=== PATIENT | male | born 1970 | race Caucasian/White ===

== ENCOUNTER → 2019-06-02 17:44 | Outpatient (CLI) | payer BC, SELFPAY ==
--- NOTE | ~2019-06-02 | XR_ITS ---
XR sternum min 2V 06/02/2019 18:10 INDICATION: Sternal pain for 9 months. Mass. PROCEDURE: 2 views of the sternum COMPARISON: Chest x-ray dated 10/01/2018 FINDINGS: Fracture, dislocation or subluxation is not identified. The soft tissues appear within norm al limits. No foreign bodies are identified. IMPRESSION: 1: NO SIGNIFICANT BONE OR JOINT ABNORMALITY IDENTIFIED. Reviewed, dictated and finalized at location A. SPOTTER
== END ==
PROVIDERS: Visit Provider Emergency Medicine
DX: R22.2 Localized swelling, mass and lump, trunk (principal)
CPT/HCPCS: 71120

== ENCOUNTER → 2019-10-04 19:21 | Outpatient (CLI) | payer BC, SELFPAY ==
--- NOTE | ~2019-10-04 | XR_ITS ---
EXAMINATION: XR cervical spine 4-5V EXAM DATE: 10/04/2019 19:43 INDICATION: Right finger numbness, tingling. TECHNIQUE: Cervical spine frontal, lateral, lateral swimmers, and open-mouth odontoid projections. There is no prior study for comparison. FINDINGS: There is moderate disc disease at C5-6 with 2-3 mm retrolisthesis. The vertebral bodies ar e otherwise aligned. Mild disc disease at C4-5, C6-7 and C7-T1. There is mild to moderate cervical ar thropathy. The odontoid process is intact. The lateral masses of C1 line up with C2. Prevertebral so ft tissue and pre-dens space are within normal limits. Lung apices are clear. IMPRESSION: 1. C5-6 moderate disc disease. 2. Mild to moderate arthropathy. Reviewed, dictated and finalized at location A.
--- NOTE | ~2019-10-04 | XR_ITS ---
EXAMINATION: XR shoulder RT min 2V EXAM DATE: 10/04/2019 19:43 INDICATION: Right finger numbness, tingling. TECHNIQUE: The following right shoulder projections obtained: frontal projection with internal rotati on, frontal projection with external rotation, Grashey, and axillary (4+ views). There is no prior s tudy for comparison. FINDINGS: There is 4 mm ossification projecting superior to the humeral head and glenoid, could be c alcific tendinosis (would be unusual location for joint body). There is mild glenohumeral, mild to mo derate acromioclavicular joint primary osteoarthritis. There are no acute fractures or dislocations i dentified. There is no subcutaneous gas. There are no radiopaque foreign bodies. IMPRESSION: 1. 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 2. Small ossification, could be calcific tendinosis. Reviewed, dictated and finalized at location A.
== END ==
PROVIDERS: PCP Emergency Medicine; Visit Provider Emergency Medicine
DX: R20.0 Anesthesia of skin (principal); R20.2 Paresthesia of skin; M19.011 Primary osteoarthritis, right shoulder; M67.813 Other specified disorders of tendon, right shoulder; M50.822 Other cervical disc disorders at C5-C6 level; M12.88 Other specific arthropathies, not elsewhere classified, other specified site
CPT/HCPCS: 72050; 73030

== ENCOUNTER → 2021-03-13 11:44 | Outpatient (CLI) | payer BC, SELFPAY ==
--- NOTE | ~2021-03-13 | XR_ITS ---
XR foot LT min 3V DATE: 03/13/2021 11:57 INDICATION: Pain and redness around the medial first metatarsophalangeal joint TECHNIQUE: 4 views COMPARISON: None FINDINGS: There is mild osteoarthritis of the first metatarsophalangeal joint. No fracture or dislocation, periosteal reaction or bone destruction. IMPRESSION: Mild left first metatarsophalangeal joint osteoarthritis Reviewed, dictated and finalized at location A.
== END ==
PROVIDERS: PCP Emergency Medicine; Visit Provider Emergency Medicine
DX: M25.572 Pain in left ankle and joints of left foot (principal)
CPT/HCPCS: 73630

== ENCOUNTER → 2022-03-16 13:56 | Outpatient (CLI) | payer BC, SELFPAY ==
--- NOTE | ~2022-03-16 | XR_ITS ---
EXAMINATION: XR chest 2V Exam Date/Time: 03/16/2022 14:03 CDT HISTORY: BRONCHITIS, COUGH X 3 DAYS Comparison: 10/01/2018. RESULT: Lines, tubes, and devices: None. Lungs and pleura: Clear. Cardiomediastinal silhouette: Stable. Other: No acute osseous or upper abdominal finding. IMPRESSION: No acute cardiopulmonary process. Reviewed, dictated and finalized at location K.
== END ==
PROVIDERS: PCP Emergency Medicine; Visit Provider Emergency Medicine
DX: J40 Bronchitis, not specified as acute or chronic (principal)
CPT/HCPCS: 71046

== ENCOUNTER → 2022-03-17 00:50 | Outpatient (CLI) | payer BC, SELFPAY ==
[2022-03-17 12:49] LABS: SARS-CoV-2 RNA PCR Negative
== END ==
PROVIDERS: PCP Emergency Medicine; Visit Provider Emergency Medicine
DX: J40 Bronchitis, not specified as acute or chronic (principal); Z20.822 Contact with and (suspected) exposure to COVID-19
CPT/HCPCS: C9803; U0003; U0005

== ENCOUNTER 2022-03-20 18:29 | Inpatient (IN) | payer BC, SELFPAY ==
[2022-03-20] VITALS (9 sets, daily range): BP systolic 117–131; BP diastolic 65–73; PULSE 75–91; RESP 14–25; TEMP 36.7; O2SAT 96–99
--- NOTE | ~2022-03-20 | NM_ITS ---
EXAMINATION: NM stress w perf spect multi DATE: 03/26/2022 09:40 INDICATION: Dyspnea with exertion TECHNIQUE: Rest images were obtained following intravenous administration of 11.1 mCi Tc99m tetrofosm in (Myoview). The patient performed an exercise activity. At peak exercise, 35.9 mCi Tc99m tetrofosmi n (Myoview) was administered intravenously, and stress images were obtained. Data was reconstructed i nto short axis and horizontal and vertical long axis SPECT images. Gated SPECT images were also ob[place]. COMPARISON: None. FINDINGS: There is normal left ventricular perfusion without definite evidence of reversible or fixed perfusion abnormality to suggest ischemia or infarction. There is normal left ventricular chamber size, wall motion and ejection fraction. Left ventricular ejection fraction measures 59%. IMPRESSION: 1. Normal myocardial perfusion at rest and during stress. 2. Left ventricular ejection fraction measuring 59%. Reviewed, dictated and finalized at location A.
--- NOTE | ~2022-03-20 | XR_ITS ---
EXAMINATION: XR chest 2V DATE: 03/20/2022 19:01 INDICATION: Shortness of breath TECHNIQUE: Frontal and lateral views of the chest are obtained COMPARISON: 03/16/2022 FINDINGS: The lungs are free of acute opacities. No pleural effusion or pneumothorax. The cardiomedia stinal silhouette is normal. There is mild thoracic spondylosis. IMPRESSION: 1. No acute cardiopulmonary abnormality. Reviewed, dictated and finalized at location F.
--- NOTE | ~2022-03-20 | CT_ITS ---
EXAMINATION: CTA chest PE protocol DATE: 03/20/2022 22:00 INDICATION: Shortness of breath TECHNIQUE: Computed tomography angiography (CTA) of the chest was performed with 200 mL Omnipaque-350 intravenous contrast timed to evaluate the pulmonary arteries. Coronal maximum intensity projection 3D-reconstructions were created by the technologist. The dose-length product (DLP) was 616.50 mGy-cm. Automated exposure control and iterative reconstruction technique were employed. COMPARISON: None. FINDINGS: The pulmonary arteries are well-opacified. No pulmonary embolism is identified. There are t ree-in-bud airspace opacities and mild bronchial wall thickening in the left lower lobe. There is mil d dependent atelectasis in the lungs. No pleural effusion or pneumothorax. There is mild left hilar l ymphadenopathy. The heart size is normal. There is mild thoracic spondylosis. IMPRESSION: 1. No pulmonary embolism. 2. Bronchial wall thickening and tree-in-bud opacities of the left lower lobe, consistent with pneumo phuc. Reviewed, dictated and finalized at location F. IMPRESSION: 1. No pulmonary embolism. 2. Bronchial wall thickening and tree-in-bud opacities of the left lower lobe, consistent with pneumonia.
--- NOTE | 2022-03-20 18:41 | ECG_ITS ---
Measurements Intervals [place] Rate: 80 P: 46 DE: 154 QRS: -2 QRSD: 100 T: 37 QT: 358 QTc: 415 Interpretive Statements SINUS RHYTHM NORMAL ECG NO PREVIOUS ECG AVAILABLE FOR COMPARISON Electronically Signed On 03-21-2022 15:08:11 CDT by Jose Alberto Shaw M.D.
[2022-03-20 18:52] LABS: Basophils Percent Auto 0.4 % (0.2-1.2); Eosinophils Percent Auto 0.2 % (0-4.4); Hematocrit 45.2 % (42.0-52.0); Hemoglobin 15.8 g/dL (14.0-18.0); Immature Granulocyte Absolute 0.04 K/mm3 (0.00-0.031); Immature Granulocyte Percent A 0.4 % (0-0.5); Lymphocytes Absolute Auto 1.36 K/mm3 (0.9-3.2); Lymphocytes Percent Auto 14.4 % (18.3-44.2); Mean Corpuscular Hemoglobin 32.2 pg (26-34); Mean Corpuscular Volume 92.2 fl (80-100); Mean Platelet Volume 10.9 fl (7.4-10.4); Monocytes Absolute Auto 0.7 K/mm3 (0.1-0.6); Monocytes Percent Auto 7.2 % (2.6-8.5); Neutrophils Absolute Auto 7.3 K/mm3 (1.3-6.7); Neutrophils Percent Auto 77.4 % (45.5-73.1); Platelet Count Result 229 k/mm3 (150-375); Red Cell Distribution Width 12.3 % (11.5-14.5); White Blood Count 9.4 K/mm3 (4.5-10.0)
[2022-03-20 19:03] LABS: Alanine Aminotransferase 28 U/L (6-50); Albumin Level 4.2 g/dL (3.5-5.1); Alkaline Phosphatase 60 U/L (38-126); Anion Gap 8 mmol/L (8-16); Aspartate Amino Transferase 22 U/L (17-59); Bilirubin,Total 0.5 mg/dL (0.2-1.3); Blood Urea Nitrogen 18 mg/dL (9-20); Carbon Dioxide 26 mmol/L (22-30); Chloride 104 mmol/L (98-107); Estimated CRCL calculation 95 ml/min; Estimated Glomerular Filt Rate > 60; Glucose 118 mg/dL (65-110); Potassium 3.6 mmol/L (3.4-5.0); Sodium 138 mmol/L (137-145)
[2022-03-20 19:06] LABS: D Dimer 0.34 ug/mL (<0.48)
--- NOTE | 2022-03-20 20:29 | ED.SOB ---
HPI - SOB/Dyspnea General Chief Complaint: Shortness of Breath/Dyspnea <Analia Crandall PA-C - Last Filed: 03/20/22 20:30> Stated Complaint: shortness of breath <Analia Crandall PA-C - Last Filed: 03/20/22 20:30> Time Seen by Provider: 03/20/22 20:28 <FELIPE Randhawa Last Filed: 03/20/22 20:30> Source: RN notes reviewed <DO Chepe Hennessy Last Filed: 03/21/22 08:49> History of Present Illness HPI Narrative: Patient presents emergency department from home for shortness of breath. Patient states symptoms began approximately 1 week ago he states he began to have a cough that was nonproductive as well as a feeling short of breath. He states he gone to his physician 5 days ago on Wednesday and at that time he been prescribed an inhaler and steroids as well as a Z-Musa. He states he continued to have feelings of shortness of breath and wheezing and come back to the physician today and was referred to the ER for further evaluation he denies any fevers or chills chest pain abdominal pain nausea vomiting or any other symptoms states he did have a negative COVID test <DO Chepe Hennessy Last Filed: 03/21/22 08:49> Related Data Home Medications: Home Medications Medication Instructions Recorded Confirmed ascorbate calcium (vitamin C) 500 500 mg PO DAILY 11/17/21 03/21/22 mg tablet clopidogrel 75 mg tablet (Plavix) 75 mg PO DAILY 11/17/21 03/21/22 finasteride 1 mg tablet 1 mg PO DAILY 11/17/21 03/21/22 testosterone cypionate 200 mg/mL 200 mg IM WEEKLY 03/21/22 03/21/22 intramuscular oil <FELIPE Randhawa Last Filed: 03/20/22 20:30> Allergies/Adverse Reactions: Allergies Allergy/AdvReac Type Severity Reaction Status Date / Time Penicillins Allergy Mild Hives Verified 11/17/21 14:32 <FELIPE Randhawa Last Filed: 03/20/22 20:30> Review of Systems Review of Systems: Gen.: Denies fevers or chills ENT: Denies congestion Respiratory: See HPI CV: Denies chest pain or palpitations GI: Denies abdominal pain nausea, emesis or diarrhea Musculoskeletal: Denies back pain or muscle pain Neuro: Denies numbness, tingling, weakness or focal weakness Skin: Denies rash Except as documented, all other systems reviewed and negative <Garrison Zhang DO - Last Filed: 03/21/22 08:49> [facility] Past Medical History Medical History: Medical History (Updated 03/21/22 @ 07:29 by FAVIO Salcedo) Asthma Folliculitis History of CVA (cerebrovascular accident) Overweight (BMI 25.0-29.9) Reactive cervical nodes <Analia Crandall PA-C - Last Filed: 03/20/22 20:30> Surgical History Surgical History: Surgical History H/O medial meniscus repair of right knee H/O vasectomy Hx of tonsillectomy <Analia Crandall PA-C - Last Filed: 03/20/22 20:30> Family History Family History: Family History Father Malignant neoplasm of prostate Hypertension Mother Pancreatic cancer <Analia Crandall PA-C - Last Filed: 03/20/22 20:30> Social History Social History: Social History Smoking status: Never smoker Alcohol intake: current Alcohol use details: social drinker- usually Beer Substance use: never Additional living arrangements comments: lives with 11 year old son Additional occupation/education comments: [employer] Gender identity (if verbalized by the patient): Male Spiritual care concerns: No <Analia Crandall PA-C - Last Filed: 03/20/22 20:30> Exam Narrative: APPEARANCE: No acute distress, nontoxic, resting in bed EYES: EOMI HEENT: Normocephalic, atraumatic, OMM RESPIRATORY: No respiratory distress wheezing throughout the bilateral lung velasco with coarse breath sounds in the bilateral lung bases C
[2022-03-20] MEDS: ALBUTEROL SULFATE NEB 2.5 MG/3 ML INH 5 MG INHALATION ×2 (20:45→22:35)
[2022-03-20] MEDS: IPRATROPIUM BR 0.02% INH SOLN 0.5 MG/2.5 ML VIAL INHALATION ×2 (20:45→22:35)
[2022-03-20] MEDS: methylPREDNISolone SOD SUCC 125 MG VIAL IV PUSH (20:57)
[2022-03-20 21:07] LABS: Troponin I < 0.012 ng/mL (0.000-0.034)
[2022-03-20 21:22] LABS: SARS-CoV-2 RNA PCR Negative
[2022-03-21] VITALS (16 sets, daily range): BP systolic 115–157; BP diastolic 56–70; PULSE 72–91; RESP 14–20; TEMP 36.5–37.1; O2SAT 98–100; BMI 23.8
--- NOTE | 2022-03-21 00:08 | ADMGEN ---
This patient, Tab Arango, was admitted to Medical Room 253-01. Patient/family oriented to hospital policies and general routines including ID bracelet, bed and alarms, visiting hours, pain management, procedures, bathroom and other care routines, personal items, smoking policy, room service/diet, and visiting hours. Information on how to activate the Rapid Response Team has been discussed. Patient/Family are encouraged to report perceived risks to care and to ask questions if they do not understand what they are told or what they should do.
[2022-03-21] MEDS: IPRATROPIUM BR 0.02% INH SOLN 0.5 MG/2.5 ML VIAL INHALATION ×4 (01:51→21:32)
[2022-03-21] MEDS: ALBUTEROL SULFATE NEB 2.5 MG/3 ML INH 5 MG INHALATION ×4 (01:52→21:31)
[2022-03-21 05:29] LABS: Basophils Percent Auto 0.1 % (0.2-1.2); Hematocrit 41.9 % (42.0-52.0); Hemoglobin 14.6 g/dL (14.0-18.0); Immature Granulocyte Absolute 0.05 K/mm3 (0.00-0.031); Immature Granulocyte Percent A 0.6 % (0-0.5); Lymphocytes Absolute Auto 0.58 K/mm3 (0.9-3.2); Lymphocytes Percent Auto 6.8 % (18.3-44.2); Mean Corpuscular HGB Conc 34.8 g/dl (32-36); Mean Corpuscular Hemoglobin 32.6 pg (26-34); Mean Corpuscular Volume 93.5 fl (80-100); Monocytes Absolute Auto 0.2 K/mm3 (0.1-0.6); Neutrophils Absolute Auto 7.7 K/mm3 (1.3-6.7); Neutrophils Percent Auto 90.5 % (45.5-73.1); Platelet Count Result 204 k/mm3 (150-375); Red Blood Count 4.48 M/mm3 (4.6-6.20); Red Cell Distribution Width 12.2 % (11.5-14.5); White Blood Count 8.5 K/mm3 (4.5-10.0)
[2022-03-21] MEDS: methylPREDNISolone SOD SUCC 125 MG VIAL 60 MG IV PUSH (05:37)
[2022-03-21 05:43] LABS: Alanine Aminotransferase 25 U/L (6-50); Albumin Level 3.9 g/dL (3.5-5.1); Alkaline Phosphatase 53 U/L (38-126); Anion Gap 12 mmol/L (8-16); Aspartate Amino Transferase 20 U/L (17-59); Bilirubin,Total 0.3 mg/dL (0.2-1.3); Blood Urea Nitrogen 17 mg/dL (9-20); Calcium 8.9 mg/dL (8.4-10.2); Carbon Dioxide 23 mmol/L (22-30); Chloride 104 mmol/L (98-107); Estimated CRCL calculation 86 ml/min; Estimated Glomerular Filt Rate > 60; Glucose 170 mg/dL (65-110); Sodium 139 mmol/L (137-145)
[2022-03-21] MEDS: ASCORBIC ACID 500 MG TABLET PO (08:56)
[2022-03-21] MEDS: CLOPIDOGREL BISULFATE 75 MG TABLET PO (08:57)
--- NOTE | 2022-03-21 10:30 | PM.IMHP ---
H&P: HPI History of Present Illness Date/Time: 03/21/22 10:30 Chief Complaint: Shortness of breath Narrative: Matthew is a 51 year old male with a past medical history of Asthma, BPH, CVA who presented to the ED with complaints of continued shortness of breath. Patient stated that this all started last Wednesday. He went to his primary care providers office and was prescribed an inhaler, steroids, and zpak. He then followed up on and had no relief. At that time his primary care provider increased his steroids to 5 days 50 mg p.o.. On Wednesday his MD called him and told him that he probably should go get evaluated the ED as he was concerned about a blood clot. Patient stated that he has just not been feeling around well. He also stated that he has been lying around and he has not moved or did much since he is so weak. He did state that his doctor wanted him to have a CT scan however that has already been done. His doctor also referred him to long lines operator. He denies any chest pain, nausea, vomiting, diarrhea, constipation, lightheadedness, dizziness, visual changes, wheezes. Patient did state that he has had a cough however is on productive at this time. He also stated that he does have headache but that too has just started. CTA did show a lower lobe pneumonia. I changed the patient over to cefepime and vancomycin due to the fact that he already took outpatient antibiotics with no relief. Currently patient denies any pain. Patient also denies any sweats, fevers, chills. Patient is being admitted to the hospital service under observation Review of Systems Review of Systems: All systems reviewed & are unremarkable except as noted in HPI and below PMFSH Past Medical History Medical History Asthma Folliculitis History of CVA (cerebrovascular accident) Overweight (BMI 25.0-29.9) Reactive cervical nodes Surgical History Surgical History H/O medial meniscus repair of right knee H/O vasectomy Hx of tonsillectomy Family History Family History Father Malignant neoplasm of prostate Hypertension Mother Pancreatic cancer Social History Social History Social History: Pain patient states that he currently lives with his brother. He elects his dad Dewey to be his surrogate if he is unable to make his own decisions. He does have 1 son and him in his brother do have multiple pets including [address] 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 Smoking status: Never smoker Alcohol intake: current Drinks per week: 3 Alcohol use details: social drinker- usually Beer every other weekend Substance use: never Living arrangements: with family Additional living arrangements comments: Lives with Brother Occupation/Education: occupation Additional occupation/education comments: [employer] Gender identity (if verbalized by the patient): Male Sexual Orientation (if Verbalized by the Patient): Straight or Heterosexual Spiritual care concerns: No Agree to blood products: Yes Meds Home Medications and Allergies Home Medications Medication Instructions Recorded Confirmed Type ascorbate calcium (vitamin C) 500 500 mg PO DAILY 11/17/21 03/21/22 History mg tablet clopidogrel 75 mg tablet (Plavix) 75 mg PO DAILY 11/17/21 03/21/22 History finasteride 1 mg tablet 1 mg PO DAILY 11/17/21 03/21/22 History testosterone cypionate 200 mg/mL 200 mg IM WEEKLY 03/21/22 03/21/22 History intramuscular oil Allergies Allergy/AdvReac Type Severity Reaction Status Date / Time Penicillins Allergy Mild Hives Verified 11/17/21 14:32 Vital Signs Vital Signs - 24 hr 03/20/22 18:31 03/20/22 20:48 03/20/22 22:37 Temperature 98.1 F Pulse Rate 87 82 81
[2022-03-21] MEDS: ACETAMINOPHEN 500 MG TABLET 1000 MG PO (11:34)
[2022-03-21 12:47] LABS: Hemoglobin A1C 5.2 % (<5.7)
[2022-03-21] MEDS: methylPREDNISolone SOD SUCC 40 MG VIAL IV PUSH (17:42)
[2022-03-21] MEDS: MELATONIN 3 MG TABLET 6 MG PO (23:00)
[2022-03-22] VITALS (10 sets, daily range): BP systolic 124–130; BP diastolic 65–68; PULSE 75–83; RESP 18–22; TEMP 36.5–36.6; O2SAT 96–99
[2022-03-22] MEDS: ALBUTEROL SULFATE NEB 2.5 MG/3 ML INH 5 MG INHALATION ×4 (02:46→20:17)
[2022-03-22] MEDS: IPRATROPIUM BR 0.02% INH SOLN 0.5 MG/2.5 ML VIAL INHALATION ×4 (02:46→20:17)
[2022-03-22 06:03] LABS: Basophils Percent Auto 0.2 % (0.2-1.2); Eosinophils Percent Auto 0.1 % (0-4.4); Hematocrit 39.4 % (42.0-52.0); Hemoglobin 13.7 g/dL (14.0-18.0); Immature Granulocyte Absolute 0.13 K/mm3 (0.00-0.031); Lymphocytes Absolute Auto 1.56 K/mm3 (0.9-3.2); Lymphocytes Percent Auto 11.7 % (18.3-44.2); Mean Corpuscular HGB Conc 34.8 g/dl (32-36); Mean Corpuscular Volume 92.1 fl (80-100); Mean Platelet Volume 11.1 fl (7.4-10.4); Monocytes Percent Auto 7.8 % (2.6-8.5); Neutrophils Absolute Auto 10.5 K/mm3 (1.3-6.7); Neutrophils Percent Auto 79.2 % (45.5-73.1); Platelet Count Result 215 k/mm3 (150-375); Red Blood Count 4.28 M/mm3 (4.6-6.20); Red Cell Distribution Width 12.5 % (11.5-14.5); White Blood Count 13.3 K/mm3 (4.5-10.0)
[2022-03-22 06:17] LABS: Alanine Aminotransferase 21 U/L (6-50); Albumin Level 3.5 g/dL (3.5-5.1); Alkaline Phosphatase 50 U/L (38-126); Anion Gap 9 mmol/L (8-16); Aspartate Amino Transferase 15 U/L (17-59); Bilirubin,Total 0.2 mg/dL (0.2-1.3); Blood Urea Nitrogen 14 mg/dL (9-20); Calcium 8.5 mg/dL (8.4-10.2); Carbon Dioxide 26 mmol/L (22-30); Chloride 105 mmol/L (98-107); Estimated CRCL calculation 95 ml/min; Estimated Glomerular Filt Rate > 60; Glucose 137 mg/dL (65-110); Magnesium 1.9 mg/dL (1.6-2.3); Potassium 3.3 mmol/L (3.4-5.0); Sodium 140 mmol/L (137-145)
[2022-03-22] MEDS: CLOPIDOGREL BISULFATE 75 MG TABLET PO (08:33)
[2022-03-22] MEDS: ASCORBIC ACID 500 MG TABLET PO (08:33)
[2022-03-22] MEDS: methylPREDNISolone SOD SUCC 40 MG VIAL IV PUSH ×2 (08:33→17:02)
[2022-03-22] MEDS: POTASSIUM CHLORIDE 20 MEQ TABLET 40 MEQ PO (09:22)
--- NOTE | 2022-03-22 09:30 | PM.IMPN ---
Progress Note: A&P Assessment and Plan (1) Community acquired pneumonia: Code(s): J18.9 - Pneumonia, unspecified organism Status: Acute Assessment and Plan: Chest X-ray shows no acute cardiopulmonary abnormality CTA shows No PE, Bronchial wall thickening and tree in bud opacities of the left lower lobe, consistent with PNA Change levaquin from the ED to cefepime and vanco for now Get blood cultures, not drawn prior to antibiotics Steroids as the patient has known history of asthma, wean to 40 BID Sputum culture collected and pending WBC elevated probably related to steroids at 13.3 Continue to trend labs Continue neb treatments (2) Failure of outpatient treatment: Code(s): Z78.9 - Other specified health status Status: Acute Assessment and Plan: Finished course of azithromycin outpatient No notable improvement WBC up probably related to steroids trend labs Blood and sputum culture ordered (3) Asthma: Code(s): J45.909 - Unspecified asthma, uncomplicated Status: Acute Assessment and Plan: Neb treatments ordered Steroids on board Continue to trend respiratory status Could be exacerbated by the PNA Cefepime and vanco for now Sputum culture ordered Time Spent With Patient Time with patient: Greater than 35 minutes Subjective Date/time seen: 03/22/22929 Interval history: 03/22/22929 Patient was sitting in the chair. He stated that he does not feel any better than he did yesterday. He did state that his cough is still the same and the sputum production is still very scant. He also is feeling very weak. He is also wheezy and has rhonchi on the bases. He is still complaining of shortness of breath with activity. No chest pain, diarrhea, or constipation noted. 03/21/22? 10:30 Matthew is a 51 year old male with a past medical history of Asthma, BPH, CVA who presented to the ED with complaints of continued shortness of breath.? Patient stated that this all started last Wednesday.? He went to his primary care providers office and was prescribed an inhaler, steroids, and zpak.? He then followed up on and had no relief.? At that time his primary care provider increased his steroids to 5 days 50 mg p.o..? On Wednesday his MD called him and told him that he probably should go get evaluated the ED as he was concerned about a blood clot.? Patient stated that he has just not been feeling around well.? He also stated that he has been lying around and he has not moved or did much since he is so weak.? He did state that his doctor wanted him to have a CT scan however that has already been done.? His doctor also referred him to general cargo clerk.? He denies any chest pain, nausea, vomiting, diarrhea, constipation, lightheadedness, dizziness, visual changes, wheezes.? Patient did state that he has had a cough however is on productive at this time.? He also stated that he does have headache but that too has just started.? CTA did show a lower lobe pneumonia.? I changed the patient over to cefepime and vancomycin due to the fact that he already took outpatient antibiotics with no relief.? Currently patient denies any pain.? Patient also denies any sweats, fevers, chills. Patient is being admitted to the hospital service under observation Review of Systems Review of Systems: All systems reviewed & are unremarkable except as noted in HPI and below Exam Const: General: cooperative, no acute distress, well developed, alert, awake, ill appearing, uncomfortable, average body habitus and well nourished Nutritional Appearance: well nourished Orientation/consciousness: patient oriented x3 Limitations: no limitations HENMT: Head: normal to inspection Ears: hearing grossly normal bilaterally Face/Nose/Sinus: Normal external nose present Mouth: Yes Normal oral and palatal mucosa present, Yes lip normal and Yes tongue normal Teeth and gi
[2022-03-22] MEDS: MELATONIN 3 MG TABLET 6 MG PO (20:45)
[2022-03-22 21:42] LABS: Vancomycin Trough 5.8 ug/mL (10.0-20.0)
[2022-03-23] VITALS (11 sets, daily range): BP systolic 113–117; BP diastolic 58–68; PULSE 64–87; RESP 12–18; TEMP 36.3–37.1; O2SAT 96–98
[2022-03-23] MEDS: ALBUTEROL SULFATE NEB 2.5 MG/3 ML INH 5 MG INHALATION ×3 (02:52→20:09)
[2022-03-23] MEDS: IPRATROPIUM BR 0.02% INH SOLN 0.5 MG/2.5 ML VIAL INHALATION ×4 (02:52→20:09)
[2022-03-23 05:58] LABS: Basophils Percent Auto 0.2 % (0.2-1.2); Eosinophils Percent Auto 0.1 % (0-4.4); Hematocrit 43.3 % (42.0-52.0); Hemoglobin 14.5 g/dL (14.0-18.0); Immature Granulocyte Absolute 0.18 K/mm3 (0.00-0.031); Immature Granulocyte Percent A 1.2 % (0-0.5); Lymphocytes Absolute Auto 1.81 K/mm3 (0.9-3.2); Lymphocytes Percent Auto 12.1 % (18.3-44.2); Mean Corpuscular HGB Conc 33.5 g/dl (32-36); Mean Corpuscular Hemoglobin 32.3 pg (26-34); Mean Corpuscular Volume 96.4 fl (80-100); Mean Platelet Volume 10.9 fl (7.4-10.4); Monocytes Absolute Auto 1.1 K/mm3 (0.1-0.6); Monocytes Percent Auto 7.3 % (2.6-8.5); Neutrophils Absolute Auto 11.9 K/mm3 (1.3-6.7); Neutrophils Percent Auto 79.1 % (45.5-73.1); Platelet Count Result 222 k/mm3 (150-375); Red Blood Count 4.49 M/mm3 (4.6-6.20); Red Cell Distribution Width 12.8 % (11.5-14.5)
[2022-03-23 06:18] LABS: Alanine Aminotransferase 20 U/L (6-50); Albumin Level 3.6 g/dL (3.5-5.1); Alkaline Phosphatase 51 U/L (38-126); Anion Gap 12 mmol/L (8-16); Aspartate Amino Transferase 17 U/L (17-59); Bilirubin,Total 0.3 mg/dL (0.2-1.3); Blood Urea Nitrogen 14 mg/dL (9-20); Calcium 8.8 mg/dL (8.4-10.2); Carbon Dioxide 26 mmol/L (22-30); Chloride 103 mmol/L (98-107); Estimated CRCL calculation 95 ml/min; Estimated Glomerular Filt Rate > 60; Glucose 128 mg/dL (65-110); Potassium 3.5 mmol/L (3.4-5.0); Sodium 141 mmol/L (137-145)
[2022-03-23] MEDS: methylPREDNISolone SOD SUCC 40 MG VIAL IV PUSH ×2 (08:07→18:02)
[2022-03-23] MEDS: CLOPIDOGREL BISULFATE 75 MG TABLET PO (08:07)
[2022-03-23] MEDS: ASCORBIC ACID 500 MG TABLET PO (08:07)
[2022-03-23] MEDS: ALBUTEROL SULFATE NEB 2.5 MG/3 ML INH (09:19)
--- NOTE | 2022-03-23 11:15 | PM.IMPN ---
Progress Note: A&P Assessment and Plan (1) Community acquired pneumonia: Code(s): J18.9 - Pneumonia, unspecified organism Status: Acute Assessment and Plan: Chest X-ray shows no acute cardiopulmonary abnormality CTA shows No PE, Bronchial wall thickening and tree in bud opacities of the left lower lobe, consistent with PNA Change levaquin from the ED to cefepime and vanco for now Get blood cultures, not drawn prior to antibiotics Steroids as the patient has known history of asthma, wean to 40 BID Sputum culture normal respiratory roberto WBC elevated probably related to steroids at 15.0 Continue to trend labs Continue neb treatments Consulted pulmonology thank you for your help (2) Failure of outpatient treatment: Code(s): Z78.9 - Other specified health status Status: Acute Assessment and Plan: Finished course of azithromycin outpatient No notable improvement WBC up probably related to steroids trend labs Blood and sputum culture ordered (3) Asthma: Code(s): J45.909 - Unspecified asthma, uncomplicated Status: Acute Assessment and Plan: Neb treatments ordered Steroids on board Continue to trend respiratory status Could be exacerbated by the PNA Cefepime and vanco for now Sputum culture ordered Subjective Date/time seen: 03/23/22 111 Interval history: 03/23/22 111 Patient states that he is doing okay today. He did state that he was still short of breath when he walks Na was still having issues with cough. He currently denies any chest nausea, diarrhea constipation fatigue I did talk to pulmonology about see the patient as he just does not sound very good in the bilateral lower bases. He did state that he was little bit weak but he stated that it is okay. He did state when he gets up that he gets so short of breath he does have to sit down and rest. 03/22/22 0930 Patient was sitting in the chair. He stated that he does not feel any better than he did yesterday. He did state that his cough is still the same and the sputum production is still very scant. He also is feeling very weak. He is also wheezy and has rhonchi on the bases. He is still complaining of shortness of breath with activity. No chest pain, diarrhea, or constipation noted. 03/21/22? 10:30 Matthew is a 51 year old male with a past medical history of Asthma, BPH, CVA who presented to the ED with complaints of continued shortness of breath.? Patient stated that this all started last Wednesday.? He went to his primary care providers office and was prescribed an inhaler, steroids, and zpak.? He then followed up on and had no relief.? At that time his primary care provider increased his steroids to 5 days 50 mg p.o..? On Wednesday his MD called him and told him that he probably should go get evaluated the ED as he was concerned about a blood clot.? Patient stated that he has just not been feeling around well.? He also stated that he has been lying around and he has not moved or did much since he is so weak.? He did state that his doctor wanted him to have a CT scan however that has already been done.? His doctor also referred him to director of student affairs.? He denies any chest pain, nausea, vomiting, diarrhea, constipation, lightheadedness, dizziness, visual changes, wheezes.? Patient did state that he has had a cough however is on productive at this time.? He also stated that he does have headache but that too has just started.? CTA did show a lower lobe pneumonia.? I changed the patient over to cefepime and vancomycin due to the fact that he already took outpatient antibiotics with no relief.? Currently patient denies any pain.? Patient also denies any sweats, fevers, chills. Patient is being admitted to the hospital service under observation Review of Systems Review of Systems: All systems reviewed & are unremarkable except as noted in HPI and below
--- NOTE | 2022-03-23 20:22 | PM.CNPUL ---
Assessment and Plan Assessment and plan (1) Community acquired pneumonia: Code(s): J18.9 - Pneumonia, unspecified organism Status: Acute Assessment and Plan: He has failed outpatient treatment, has persistent shortness of breath with exertion, no PE on CTA Does not feel much better compared to admission Has a history of stroke with left upper quadrant bilateral visual field defect consistent with right temporal lobe infarct 2012 says that he had a hole in his heart, however this was determined to be stable and did not need to be closed. echo with bubble study see if he has symptoms due to any change in a PFO or other intracardiac shunt Cornet valve with efforts to obtain sputum may help to guide treatment change if needed Urine antigens for Legionella and pneumococcus Continue bronchodilators and same antibiotics After discharge with improvement, consider PFTs and further follow up based on symptoms. History of Present Illness History of Present Illness Consult date: 03/23/22 Requesting physician: Landon Valdivia APN-C Reason for consult: pneumonia Chief complaint: Pneumonia Narrative: NEW CONSULT: Tab Arango is a 51-year-old healthy man who had asthma in his teens. He developed pneumonia over a week ago, Initially had fever for a few days. He had some coughing with scant amounts of sputum. He took off work last WednesdayMarch 16, saw his primary that day, was started on prednisone, azithromycin and albuterol. On Wednesday he felt terrible. He had worsening shortness of breath with exertion. He did not have any GI symptoms, no nausea vomiting diarrhea or abdominal pain, did not have a sore throat or any sinus congestion or drainage. He did not feel any better a few days later, had a chest x-ray that was negative. He continued to feel short of breath, especially with exertion. His primary recommended admission on Wednesday to make sure that he did not have a PE given the shortness of breath. Because he failed outpatient treatment, he was treated with cefepime and vancomycin. He had a CTA on 03/20 which did not show a pulmonary embolus. He does have a pneumonia in the left base with bronchial wall thickening and tree-in-bud opacities of the left lower lobe, consistent with pneumonia. He still is short of breath. His WBC is higher today, 15 K, normal Na+, normal BUN, creat and BP. He is oxygenating on room air. His only isck contact was with his girlfriend's 5 year old twins, and one of them had a sinus infection, and he recovered quickly. He has not had travel. He thought he might have developed COVID again, but a recent COVID test was negative. He has had COVID in the last year, maybe had it twice, and had loss of smell and taste. Otherwise he was not severely ill with COVID. He has a history of a stroke in 2013 with a left upper quadrant hemianopia. He had a workup at [facility], was told that he had a small hole in his heart, however he did not undergo closure. He had visual therapy, still has the defect. 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 Review of Systems Review of Systems: All systems reviewed & are unremarkable except as noted in HPI and below PMFSH Past Medical History Medical History Asthma Folliculitis History of CVA (cerebrovascular accident) Overweight (BMI 25.0-29.9) Reactive cervical nodes Surgical History Surgical History H/O medial meniscus repair of right knee H/O vasectomy Hx of tonsillectomy Family History Family History Father Malignant neoplasm of prostate Hypertension Mother Pancreatic cancer Social History Social History Social History: Pain patient states that he currently lives with
[2022-03-23] MEDS: MELATONIN 3 MG TABLET 6 MG PO (21:32)
[2022-03-23] MEDS: DOXYCYCLINE 100 MG/NS 100 ML 100 MG/100 ML BAG IVPB (21:33)
[2022-03-24] VITALS (9 sets, daily range): BP systolic 115–122; BP diastolic 53–67; PULSE 66–97; RESP 16–20; TEMP 36.3–36.7; O2SAT 95–98
--- NOTE | 2022-03-24 | ECHO_ITS ---
Patient Info Name: Tab Arango Age: 51 years : 1970 Gender: Male Ht: 72 in Wt: 175 lbs BSA: 2.01 m2 HR: 73 bpm BP: 113 / 68 mmHg Heart Rhythm: Sinus Rhythm Exam Date: 03/24/2022 11:34 AM Exam Location: [facility] Patient Status: Inpatient Admit Date: 03/22/2022 Staff Ordering Physician: Chrystal Gilman MD Fish Farm Manager: Emigdio Martin RDCS, RT Attending Provider: Ying Anthony DO Referring Physician: Mukul TOWNSEND; Exam Type: CA echo doppler w bubble study Study Info Indications R06.02 - Shortness of breath Complete two-dimensional, color flow and Doppler transthoracic echocardiogram is performed with agitated saline. Strain analysis performed. Summary 1. Left ventricular chamber dimension is mildly enlarged. 2. Left ventricular systolic function is normal, estimated at 55-60%. 3. There is mildly increased left ventricular wall thickness. 4. Left ventricular septal wall motion is normal. 5. The left ventricular diastolic function is normal. 6. Global longitudinal strain is normal at -21 %. 7. Left atrial chamber dimension is mildly enlarged. 8. Right atrial chamber dimension is mildly enlarged. 9. Suspected patent foramen ovale visualized by agitated saline imaging. 10. There is mild mitral valve regurgitation. 11. There is mild tricuspid valve regurgitation. 12. There is mild pulmonic regurgitation. 13. Normal inferior vena cava with <50% collapse upon inspiration consistent with elevated right atrial pressure, 10 mmHg. Left Ventricle Left ventricular chamber dimension is mildly enlarged. Left ventricular systolic function is normal, estimated at 55-60%. There is mildly increased left ventricular wall thickness. Left ventricular septal wall motion is normal. The left ventricular diastolic function is normal. Global longitudinal strain is normal at -21 %. Right Ventricle Right ventricular chamber dimension is normal. Right ventricular systolic function is normal. Left Atria Left atrial chamber dimension is mildly enlarged. Right Atria Right atrial chamber dimension is mildly enlarged. Atrial Septum Suspected patent foramen ovale visualized by agitated saline imaging. Aortic Valve The aortic valve is trileaflet. There is mild aortic valve sclerosis. There is no aortic valve stenosis. There is trace aortic valve regurgitation. Pulmonic Valve The pulmonic valve is normal. There is no pulmonic valve stenosis. There is mild pulmonic regurgitation. Mitral Valve The mitral valve has normal leaflets. There is no mitral valve stenosis. There is mild mitral valve regurgitation. Tricuspid Valve The tricuspid valve leaflets are normal. There is no significant tricuspid valve stenosis. There is mild tricuspid valve regurgitation. Inferior Vena Cava Normal inferior vena cava with <50% collapse upon inspiration consistent with elevated right atrial pressure, 10 mmHg. Aorta The aortic root size at the sinus of Valsalva is borderline dilated. Left Ventricular Outflow Tract Name Value Normal LVOT 2D LVOT Diameter 2.0 cm LVOT Doppler LVOT Peak Gradient
[2022-03-24 05:36] LABS: Basophils Absolute Auto 0.1 K/mm3 (0.0-0.1); Basophils Percent Auto 0.3 % (0.2-1.2); Eosinophils Percent Auto 0.1 % (0-4.4); Hematocrit 45.2 % (42.0-52.0); Hemoglobin 15.5 g/dL (14.0-18.0); Immature Granulocyte Absolute 0.34 K/mm3 (0.00-0.031); Immature Granulocyte Percent A 1.9 % (0-0.5); Lymphocytes Absolute Auto 1.87 K/mm3 (0.9-3.2); Lymphocytes Percent Auto 10.4 % (18.3-44.2); Mean Corpuscular HGB Conc 34.3 g/dl (32-36); Mean Corpuscular Hemoglobin 32.4 pg (26-34); Mean Corpuscular Volume 94.4 fl (80-100); Mean Platelet Volume 10.8 fl (7.4-10.4); Monocytes Absolute Auto 1.2 K/mm3 (0.1-0.6); Monocytes Percent Auto 6.5 % (2.6-8.5); Neutrophils Absolute Auto 14.6 K/mm3 (1.3-6.7); Neutrophils Percent Auto 80.8 % (45.5-73.1); Nucleated Red Blood Cells Perc 0.1 % (0.0-0.2); Platelet Count Result 252 k/mm3 (150-375); Red Blood Count 4.79 M/mm3 (4.6-6.20); Red Cell Distribution Width 12.7 % (11.5-14.5)
[2022-03-24 05:46] LABS: Alanine Aminotransferase 22 U/L (6-50); Albumin Level 3.9 g/dL (3.5-5.1); Alkaline Phosphatase 56 U/L (38-126); Anion Gap 8 mmol/L (8-16); Aspartate Amino Transferase 15 U/L (17-59); Bilirubin,Total 0.5 mg/dL (0.2-1.3); Blood Urea Nitrogen 16 mg/dL (9-20); Calcium 8.9 mg/dL (8.4-10.2); Carbon Dioxide 25 mmol/L (22-30); Chloride 105 mmol/L (98-107); Estimated CRCL calculation 106 ml/min; Estimated Glomerular Filt Rate > 60; Glucose 131 mg/dL (65-110); Magnesium 2.2 mg/dL (1.6-2.3); Potassium 4.1 mmol/L (3.4-5.0); Sodium 138 mmol/L (137-145)
[2022-03-24] MEDS: IPRATROPIUM BR 0.02% INH SOLN 0.5 MG/2.5 ML VIAL INHALATION ×3 (07:32→20:20)
[2022-03-24] MEDS: ALBUTEROL SULFATE NEB 2.5 MG/3 ML INH 5 MG INHALATION ×3 (07:32→20:20)
[2022-03-24] MEDS: DOXYCYCLINE 100 MG/NS 100 ML 100 MG/100 ML BAG IVPB ×2 (08:04→20:15)
[2022-03-24] MEDS: methylPREDNISolone SOD SUCC 40 MG VIAL IV PUSH ×2 (08:05→16:49)
[2022-03-24] MEDS: CLOPIDOGREL BISULFATE 75 MG TABLET PO (08:05)
[2022-03-24] MEDS: ASCORBIC ACID 500 MG TABLET PO (08:05)
--- NOTE | 2022-03-24 10:15 | PM.IMPN ---
Progress Note: A&P Assessment and Plan (1) Community acquired pneumonia: Code(s): J18.9 - Pneumonia, unspecified organism Status: Acute Assessment and Plan: Chest X-ray shows no acute cardiopulmonary abnormality CTA shows No PE, Bronchial wall thickening and tree in bud opacities of the left lower lobe, consistent with PNA Change antibiotics to cefepime and doxycycline Get blood cultures, not drawn prior to antibiotics Steroids as the patient has known history of asthma, wean to 40 BID Sputum culture normal respiratory roberto WBC elevated probably related to steroids at 18.0 Continue to trend labs Continue neb treatments Consulted pulmonology thank you for your help Pneumococcal, legionella ordered IS, Pep therapy (2) Failure of outpatient treatment: Code(s): Z78.9 - Other specified health status Status: Acute Assessment and Plan: Finished course of azithromycin outpatient No notable improvement WBC up probably related to steroids trend labs Blood and sputum culture ordered (3) Asthma: Code(s): J45.909 - Unspecified asthma, uncomplicated Status: Acute Assessment and Plan: Neb treatments ordered Steroids on board Continue to trend respiratory status Could be exacerbated by the PNA Cefepime and vanco for now Sputum culture came back to no growth Add Pulmicort Time Spent With Patient Time with patient: Greater than 35 minutes Subjective Date/time seen: 03/24/22 10:15 Interval history: 03/24/22 1015 Patient was lying in bed. Patient stated he has been able to walk around however he still gets very short of breath when he walks. He does not sound any better with lungs his white count is worse at 18 which is prior related to they steroids. He does have a cough that is still dry. Weakness is getting better. He denies any chest pain, nausea, vomiting, diarrhea, constipation. 03/23/22 1115 Patient states that he is doing okay today. He did state that he was still short of breath when he walks Na was still having issues with cough. He currently denies any chest nausea, diarrhea constipation fatigue I did talk to pulmonology about see the patient as he just does not sound very good in the bilateral lower bases. He did state that he was little bit weak but he stated that it is okay. He did state when he gets up that he gets so short of breath he does have to sit down and rest. 03/22/22 0930 Patient was sitting in the chair. He stated that he does not feel any better than he did yesterday. He did state that his cough is still the same and the sputum production is still very scant. He also is feeling very weak. He is also wheezy and has rhonchi on the bases. He is still complaining of shortness of breath with activity. No chest pain, diarrhea, or constipation noted. 03/21/22? 10:30 Matthew is a 51 year old male with a past medical history of Asthma, BPH, CVA who presented to the ED with complaints of continued shortness of breath.? Patient stated that this all started last Wednesday.? He went to his primary care providers office and was prescribed an inhaler, steroids, and zpak.? He then followed up on and had no relief.? At that time his primary care provider increased his steroids to 5 days 50 mg p.o..? On Wednesday his MD called him and told him that he probably should go get evaluated the ED as he was concerned about a blood clot.? Patient stated that he has just not been feeling around well.? He also stated that he has been lying around and he has not moved or did much since he is so weak.? He did state that his doctor wanted him to have a CT scan however that has already been done.? His doctor also referred him to pharmaceutical detailer.? He denies any chest pain, nausea, vomiting, diarrhea, constipation, lightheadedness, dizziness, visual changes, wheezes.? Patient did state that he has had a cough however is
--- NOTE | 2022-03-24 19:05 | PM.PNPUL ---
Progress Note: A&P Assessment and Plan (1) Community acquired pneumonia: Code(s): J18.9 - Pneumonia, unspecified organism Status: Acute Assessment and Plan: He has failed outpatient treatment, has persistent shortness of breath with exertion, no PE on CTA 03/20/22 He is feeling a little better, however WBC increased to 18 K. plan: check echo with bubble results; he had a shunt in 2012 with his stroke, but this was not deemed a problem, not closed. Continue Cornet valve for clearing airway secretions, bronchodilators, antibiotics. repeat CXR tomorrow Urine antigens are pending, but he won't have to wait for results if he is stable to go home Continue bronchodilators and same antibiotics After discharge with improvement, consider PFTs and further follow up based on symptoms. Has a history of stroke with left upper quadrant bilateral visual field defect consistent with right temporal lobe infarct 2012 says that he had a hole in his heart, however this was determined to be stable and did not need to be closed. Subjective Date/time seen: 03/24/22 19:05 Interval history: Hospital follow up : Tab Arango is a 51-year-old admitted with community acquired pneumonia, has asthma, was short of breath out of proportion to his LLL changes on chest CT. He failed out patient treatment, was admitted 03/20 to make sure that he did not have a PE given the shortness of breath, started on cefepime and vancomycin, CTA on 03/20 which did not show a pulmonary embolus.? He does have a pneumonia in the left base with? bronchial wall thickening and tree-in-bud opacities of the left lower lobe, consistent with pneumonia. ??He still is short of breath. His WBC is higher today, 18 K, normal Na+, normal BUN, creat and BP. He is oxygenating on room air.? He is feeling better using the Cornet valve. I turned it up to the highest setting. He is able to use this without difficulty. He had his echo with bubble today, results pending. Urine antigens pending also. He thought he might have developed COVID again, but a recent COVID test was negative.? He has had COVID in the last year, maybe had it twice, and had loss of smell and taste.? Otherwise he was not severely ill with COVID. PMH: Asthma; stroke in 2013 with a left upper quadrant hemianopia. ? He had a workup at [facility], was told that he had a small hole in his heart, however he did not undergo closure. He had visual therapy, still has the defect. 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 Review of Systems Review of Systems: All systems reviewed & are unremarkable except as noted in HPI and below Exam Narrative: GEN: Alert, oriented, not in distress. He is on room air, saturation is 96%. HEENT: pupils are equal, EOMI, symmetrical face; oral membranes moist CHEST: Equal air entry, symmetric excursion, localized wheezing the left base posteriorly with more crackles same area CV: Regular S1S2 no m/g/r ABD : (+) bowel sounds Extremities : no clubbing, cyanosis, or edema. No rash. PSYCH: normal thought and speech, gait is not tested. Neuro: He has a left upper outer visual field cut in both eyes Objective Data Vital Signs Vital Signs: Vital Signs - 24 hr 03/23/22 20:09 03/23/22 21:32 03/23/22 20:16 Temperature Pulse Rate 85 84 Respiratory Rate 16 16 Blood Pressure Pulse Oximetry 98 Oxygen Delivery Room Air 03/23/22 22:40 03/23/22 21:20 03/24/22 07:32 Temperature 36.3 C L Pulse Rate 76 86 Respiratory Rate 18 16 Blood Pressure 113/68 Pulse Oximetry 97 Oxygen Delivery Room Air 03/24/22 06:00 03/24/22 07:45 03/24/22 08:30 Temperature 36.6 C Pulse Rate 66 84 Respiratory Rate 20 16 Blood Pressure 117/53 L Pulse Oximetry 98 Oxygen Delivery Room Air 03/24/22 14:44 03/24/22 14:53 03/24/22 14:00 Temperature 36.7 C Pulse Rate 97
[2022-03-24] MEDS: MELATONIN 3 MG TABLET 6 MG PO (20:17)
[2022-03-24] MEDS: BUDESONIDE RESPULE NEB 0.5 MG/2 ML AMP INHALATION (20:21)
[2022-03-25] VITALS (13 sets, daily range): BP systolic 114–144; BP diastolic 64–85; PULSE 65–86; RESP 16–20; TEMP 36.2–36.4; O2SAT 96–99
[2022-03-25] MEDS: IPRATROPIUM BR 0.02% INH SOLN 0.5 MG/2.5 ML VIAL INHALATION ×4 (02:32→20:03)
[2022-03-25] MEDS: ALBUTEROL SULFATE NEB 2.5 MG/3 ML INH 5 MG INHALATION ×5 (02:32→20:03)
--- NOTE | 2022-03-25 04:14 | PC.NURSE ---
PT STATES POST VOID RESIDUAL DONE ON DAY SHIFT AND IT WAS 0
[2022-03-25 05:44] LABS: Basophils Absolute Auto 0.1 K/mm3 (0.0-0.1); Basophils Percent Auto 0.3 % (0.2-1.2); Eosinophils Percent Auto 0.1 % (0-4.4); Hemoglobin 15.6 g/dL (14.0-18.0); Immature Granulocyte Percent A 2.1 % (0-0.5); Lymphocytes Absolute Auto 1.71 K/mm3 (0.9-3.2); Mean Corpuscular HGB Conc 34.7 g/dl (32-36); Mean Corpuscular Hemoglobin 32.4 pg (26-34); Mean Corpuscular Volume 93.4 fl (80-100); Mean Platelet Volume 10.9 fl (7.4-10.4); Monocytes Absolute Auto 1.2 K/mm3 (0.1-0.6); Monocytes Percent Auto 6.6 % (2.6-8.5); Neutrophils Absolute Auto 15.5 K/mm3 (1.3-6.7); Neutrophils Percent Auto 81.9 % (45.5-73.1); Nucleated Red Blood Cells Perc 0.1 % (0.0-0.2); Platelet Count Result 265 k/mm3 (150-375); Red Blood Count 4.82 M/mm3 (4.6-6.20); Red Cell Distribution Width 12.5 % (11.5-14.5); White Blood Count 18.9 K/mm3 (4.5-10.0)
[2022-03-25 06:07] LABS: Alanine Aminotransferase 22 U/L (6-50); Albumin Level 3.9 g/dL (3.5-5.1); Alkaline Phosphatase 62 U/L (38-126); Anion Gap 8 mmol/L (8-16); Aspartate Amino Transferase 15 U/L (17-59); Bilirubin,Total 0.5 mg/dL (0.2-1.3); Blood Urea Nitrogen 18 mg/dL (9-20); Calcium 8.9 mg/dL (8.4-10.2); Carbon Dioxide 26 mmol/L (22-30); Chloride 103 mmol/L (98-107); Estimated CRCL calculation 95 ml/min; Estimated Glomerular Filt Rate > 60; Glucose 122 mg/dL (65-110); Lipase 44 U/L (23-300); Sodium 137 mmol/L (137-145)
--- NOTE | 2022-03-25 09:00 | PM.IMPN ---
Progress Note: A&P Assessment and Plan (1) Community acquired pneumonia: Code(s): J18.9 - Pneumonia, unspecified organism Status: Acute Assessment and Plan: Chest X-ray shows no acute cardiopulmonary abnormality CTA shows No PE, Bronchial wall thickening and tree in bud opacities of the left lower lobe, consistent with PNA Change antibiotics to cefepime and doxycycline Get blood cultures, not drawn prior to antibiotics Steroids as the patient has known history of asthma, wean to 40 BID Sputum culture normal respiratory roberto, however repeated WBC elevated probably related to steroids at 18.9 Continue to trend labs Continue neb treatments Consulted pulmonology thank you for your help Pneumococcal, legionella ordered IS, Pep therapy (2) Failure of outpatient treatment: Code(s): Z78.9 - Other specified health status Status: Acute Assessment and Plan: Finished course of azithromycin outpatient No notable improvement WBC up probably related to steroids trend labs Blood and sputum culture ordered (3) Asthma: Code(s): J45.909 - Unspecified asthma, uncomplicated Status: Acute Assessment and Plan: Neb treatments ordered Steroids on board Continue to trend respiratory status Could be exacerbated by the PNA Cefepime and vanco for now Sputum culture came back to no growth, will repeat at this time Add Pulmicort (4) Dyspnea on exertion: Code(s): R06.09 - Other forms of dyspnea Status: Acute Assessment and Plan: Trend respiratory track Echo does not show any acute problems Will get stress test Continue to trend labs Time Spent With Patient Time with patient: Greater than 35 minutes Subjective Date/time seen: 03/25/22 0900 Interval history: 03/25/22 09 Patient seems to be doing okay. White count is continually going up it is 18.9 today. Echo does show a little bit of of patent foramen ovale however discussing with Cardiology was not the cause of his dyspnea on exertion. After review with Dr. Vyas it was determined that the patient probably would benefit from a stress test. Currently patient denies any chest pain however he is still getting very short of breath with activity has to sit down. He denies any nausea, vomiting, diarrhea, constipation, weakness or fatigue. Patient does still sound very rough with wheezes and crackles and rhonchi. 03/24/22 1015 Patient was lying in bed. Patient stated he has been able to walk around however he still gets very short of breath when he walks. He does not sound any better with lungs his white count is worse at 18 which is prior related to they steroids. He does have a cough that is still dry. Weakness is getting better. He denies any chest pain, nausea, vomiting, diarrhea, constipation. 03/23/22 1115 Patient states that he is doing okay today. He did state that he was still short of breath when he walks Na was still having issues with cough. He currently denies any chest nausea, diarrhea constipation fatigue I did talk to pulmonology about see the patient as he just does not sound very good in the bilateral lower bases. He did state that he was little bit weak but he stated that it is okay. He did state when he gets up that he gets so short of breath he does have to sit down and rest. 03/22/22 0930 Patient was sitting in the chair. He stated that he does not feel any better than he did yesterday. He did state that his cough is still the same and the sputum production is still very scant. He also is feeling very weak. He is also wheezy and has rhonchi on the bases. He is still complaining of shortness of breath with activity. No chest pain, diarrhea, or constipation noted. 03/21/22? 10:30 Matthew is a 51 year old male with a past medical history of Asthma, BPH, CVA who presented to the ED with complaints of continued
--- NOTE | 2022-03-25 09:00 | P.PNIM_ITS ---
Progress Note: A&P Assessment and Plan (1) Community acquired pneumonia: Code(s): J18.9 - Pneumonia, unspecified organism Status: Acute Assessment and Plan: * Chest X-ray shows no acute cardiopulmonary abnormality * CTA shows No PE, Bronchial wall thickening and tree in bud opacities of the left lower lobe, consistent with PNA * Change antibiotics to cefepime and doxycycline * Get blood cultures, not drawn prior to antibiotics * Steroids as the patient has known history of asthma, wean to 40 BID * Sputum culture normal respiratory roberto, however repeated * WBC elevated probably related to steroids at 18.9 * Continue to trend labs * Continue neb treatments * Consulted pulmonology thank you for your help * Pneumococcal, legionella ordered * IS, Pep therapy (2) Failure of outpatient treatment: Code(s): Z78.9 - Other specified health status Status: Acute Assessment and Plan: * Finished course of azithromycin outpatient * No notable improvement * WBC up probably related to steroids * trend labs * Blood and sputum culture ordered (3) Asthma: Code(s): J45.909 - Unspecified asthma, uncomplicated Status: Acute Assessment and Plan: * Neb treatments ordered * Steroids on board * Continue to trend respiratory status * Could be exacerbated by the PNA * Cefepime and vanco for now * Sputum culture came back to no growth, will repeat at this time * Add Pulmicort (4) Dyspnea on exertion: Code(s): R06.09 - Other forms of dyspnea Status: Acute Assessment and Plan: * Trend respiratory track * Echo does not show any acute problems * Will get stress test * Continue to trend labs Time Spent With Patient Time with patient: Greater than 35 minutes Subjective Date/time seen: 03/25/22 0900 Interval history: 03/25/22 09 Patient seems to be doing okay. White count is continually going up it is 18.9 today. Echo does show a little bit of of patent foramen ovale however discussing with Cardiology was not the cause of his dyspnea on exertion. After review with Dr. Vyas it was determined that the patient probably would benefit from a stress test. Currently patient denies any chest pain however he is still getting very short of breath with activity has to sit down. He denies any nausea, vomiting, diarrhea, constipation, weakness or fatigue. Patient does still sound very rough with wheezes and crackles and rhonchi. 03/24/22 1015 Patient was lying in bed. Patient stated he has been able to walk around however he still gets very short of breath when he walks. He does not sound any better with lungs his white count is worse at 18 which is prior related to they steroids. He does have a cough that is still dry. Weakness is getting better. He denies any chest pain, nausea, vomiting, diarrhea, constipation. 03/23/22 1115 Patient states that he is doing okay today. He did state that he was still short of breath when he walks Na was still having issues with cough. He curren tly denies any chest nausea, diarrhea constipation fatigue I did talk to pulmonology about see the patient as he just does not sound very good in the bilateral lower bases. He did state that he was little bit weak but he stated that it is okay. He did state when he gets up that he gets so short of breath he does have to sit down and rest. 03/22/22 0930 Patient was sitting in the chair. He stated that he does not feel any jose
[2022-03-25] MEDS: methylPREDNISolone SOD SUCC 40 MG VIAL IV PUSH ×2 (09:12→17:15)
[2022-03-25] MEDS: ASCORBIC ACID 500 MG TABLET PO (09:12)
[2022-03-25] MEDS: CLOPIDOGREL BISULFATE 75 MG TABLET PO (09:12)
[2022-03-25] MEDS: BUDESONIDE RESPULE NEB 0.5 MG/2 ML AMP INHALATION ×2 (09:35→20:03)
[2022-03-25] MEDS: FUROSEMIDE INJ 40 MG/4 ML VIAL IV PUSH (09:49)
[2022-03-25] MEDS: DOXYCYCLINE 100 MG/NS 100 ML 100 MG/100 ML BAG IVPB ×2 (09:50→19:46)
[2022-03-25 10:06] LABS: NT Pro B Type Natriuretic Pept 34 pg/mL (5-100)
--- NOTE | 2022-03-25 19:15 | PM.PNPUL ---
Progress Note: A&P Assessment and Plan (1) Community acquired pneumonia: Code(s): J18.9 - Pneumonia, unspecified organism Status: Acute Assessment and Plan: He has failed outpatient treatment, has persistent shortness of breath with exertion, no PE on CTA 03/20/22 He is feeling a little better, however WBC increased to 18.9 K. Echo with bubble results 03/24/22 Left ventricular chamber dimension is mildly enlarged. ? 2. Left ventricular systolic function is normal, estimated at 55-60%. ? 3. There is mildly increased left ventricular wall thickness. ? 4. Left ventricular septal wall motion is normal. ? 5. The left ventricular diastolic function is normal. ? 6. Global longitudinal strain is normal at -21 %. ? 7. Left atrial chamber dimension is mildly enlarged. ? 8. Right atrial chamber dimension is mildly enlarged. ? 9. Suspected patent foramen ovale visualized by agitated saline imaging. ? 10. There is mild mitral valve regurgitation. ? 11. There is mild tricuspid valve regurgitation. ? 12. There is mild pulmonic regurgitation. ? 13. Normal inferior vena cava with <50% collapse upon inspiration consistent with elevated right atrial pressure, 10 mmHg. He had an intracardiac shunt in 2012 with his stroke, but this was not deemed a problem, not closed. Continue Cornet valve for clearing airway secretions, bronchodilators, antibiotics. Urine antigens are pending. Continue bronchodilators and same antibiotics After discharge with improvement, PFTs and further follow up based on his recovery. Subjective Date/time seen: 03/25/22 19:15 Interval history: Hospital follow up : Tab Arango is a 51-year-old admitted with community acquired pneumonia, has asthma, was short of breath out of proportion to his LLL changes on chest CT. He failed out patient treatment, was admitted 03/20 to make sure that he did not have a PE given the shortness of breath, started on cefepime and vancomycin, CTA on 03/20 which did not show a pulmonary embolus.? He does have a pneumonia in the left base with? bronchial wall thickening and tree-in-bud opacities of the left lower lobe, consistent with pneumonia. ??He still is short of breath. His WBC is higher today, 18 K, normal Na+, normal BUN, creat and BP. He is oxygenating on room air.? He is feeling better using the Cornet valve. I turned it up to the highest setting. He is able to use this without difficulty. Urine antigens pending also. He thought he might have developed COVID again, but a recent COVID test was negative.? He has had COVID in the last year, maybe had it twice, and had loss of smell and taste.? Otherwise he was not severely ill with COVID. PMH: Asthma; stroke in 2012 with a left upper quadrant hemianopia consistent with a right temporal lobe infarct 2012. He had a workup at [facility], was told that he had a small hole in his heart, however he did not undergo closure. He had visual therapy, still has the visual defect. 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 Review of Systems Review of Systems: All systems reviewed & are unremarkable except as noted in HPI and below Exam Narrative: GEN: Alert, oriented, not in distress. He is on room air, saturation is 96%. HEENT: pupils are equal, EOMI, symmetrical face; oral membranes moist CHEST: Equal air entry, symmetric excursion, localized wheezing the left base posteriorly with more crackles same area with more wheezing in the left amterior chest CV: Regular S1S2 no m/g/r ABD : (+) bowel sounds Extremities : no clubbing, cyanosis, or edema. No rash. PSYCH: normal thought and speech, gait is not tested. Objective Data Vital Signs Vital Signs: Vital Signs - 24 hr 03/24/22 20:24 03/24/22 20:25 03/24/22 20:45 Temperature 36.3 C L Pulse Rate 77 80 Respiratory Rate 16 18 Blood Pressure 122/58 L Pulse Oximetry 97 95 O
[2022-03-25] MEDS: MELATONIN 3 MG TABLET 6 MG PO (19:47)
[2022-03-26] VITALS (7 sets, daily range): BP systolic 118–129; BP diastolic 64–70; PULSE 66–77; RESP 18; TEMP 36.4–36.9; O2SAT 96–98
--- NOTE | 2022-03-26 | EST_ITS ---
Patient Info Name: Tab Arango Age: 51 years : 1970 Gender: Male Ht: 72 in Wt: 175 lbs BSA: 2.01 m2 HR: 60 bpm BP: 120 / 82 mmHg Heart Rhythm: Sinus Rhythm Exam Date: 03/26/2022 8:47 AM Exam Location: [facility], [place] Stress Patient Status: Inpatient Admit Date: 03/22/2022 Staff Ordering Physician: Landon Valdivia Attending Provider: Ying Anthony DO Exercise Technologist: Mary Barrios CT Nurse: jennifer bermeo Exam Type: CA stress test treadmill w NM Study Info Indications R06.00 - Dyspnea, unspecified A nuclear stress test was performed. Summary 1. Please correlate with nuclear medicine images, reported separately. 2. No abnormal ST-T wave changes with exercise. Protocol: [facility] ECG Details Stage: REST Duration (min): 0 min : 46 sec Speed (mph): 0.0 Grade (%): 0 HR (bpm): 60 SBP (mmHg): 120 DBP (mmHg): 82 METS: --- Stage: REST Duration (min): 3 min : 45 sec Speed (mph): 0.0 Grade (%): 0 HR (bpm): 65 SBP (mmHg): 120 DBP (mmHg): 82 METS: --- Stage: STAGE 1 Duration (min): 1 min : 0 sec Speed (mph): 1.7 Grade (%): 10 HR (bpm): 87 SBP (mmHg): 120 DBP (mmHg): 82 METS: --- Stage: STAGE 1 Duration (min): 2 min : 0 sec Speed (mph): 1.7 Grade (%): 10 HR (bpm): 94 SBP (mmHg): 120 DBP (mmHg): 82 METS: --- Stage: STAGE 1 Duration (min): 3 min : 0 sec Speed (mph): 1.7 Grade (%): 10 HR (bpm): 94 SBP (mmHg): 120 DBP (mmHg): 82 METS: --- Stage: STAGE 2 Duration (min): 1 min : 0 sec Speed (mph): 2.5 Grade (%): 12 HR (bpm): 101 SBP (mmHg): 120 DBP (mmHg): 82 METS: --- Stage: STAGE 2 Duration (min): 2 min : 0 sec Speed (mph): 2.5 Grade (%): 12 HR (bpm): 105 SBP (mmHg): 147 DBP (mmHg): 74 METS: --- Stage: STAGE 2 Duration (min): 3 min : 0 sec Speed (mph): 2.5 Grade (%): 12 HR (bpm): 108 SBP (mmHg): 147 DBP (mmHg): 74 METS: --- Stage: STAGE 3 Duration (min): 1 min : 0 sec Speed (mph): 3.4 Grade (%): 14 HR (bpm): 118 SBP (mmHg): 159 DBP (mmHg): 74 METS: --- Stage: STAGE 3 Duration (min): 2 min : 0 sec Speed (mph): 3.4 Grade (%): 14 HR (bpm): 122 SBP (mmHg): 159 DBP (mmHg): 74 METS: --- Stage: STAGE 3 Duration (min): 3 min : 0 sec Speed (mph): 3.4 Grade (%): 14 HR (bpm): 129 SBP (mmHg): 158 DBP (mmHg): 73 METS: --- Stage: STAGE 4 Duration (min): 1 min : 0 sec Speed (mph): 4.2 Grade (%): 16 HR (bpm): 145 SBP (mmHg): 158 DBP (mmHg): 73 METS: --- Stage: STAGE 4 Duration (min): 2 min : 0 sec Speed (mph): 4.2 Grade (%): 16 HR (bpm): 156 SBP (mmHg): 200 DBP (mmHg): 76 METS: --- Stage: STAGE 4
[2022-03-26] MEDS: IPRATROPIUM BR 0.02% INH SOLN 0.5 MG/2.5 ML VIAL INHALATION ×2 (02:10→13:42)
[2022-03-26] MEDS: ALBUTEROL SULFATE NEB 2.5 MG/3 ML INH 5 MG INHALATION ×3 (02:10→13:42)
--- NOTE | 2022-03-26 07:15 | PM.DS ---
DS: Admitting Diagnosis Discharge Date 03/26/2215 Admitting Diagnosis PNA, dyspnea with exerction DS: Discharge Diagnosis Discharge Diagnosis (1) Community acquired pneumonia: Code(s): J18.9 - Pneumonia, unspecified organism Status: Acute Assessment and Plan: Chest X-ray shows no acute cardiopulmonary abnormality CTA shows No PE, Bronchial wall thickening and tree in bud opacities of the left lower lobe, consistent with PNA Change antibiotics to cefepime and doxycycline Get blood cultures, not drawn prior to antibiotics Steroids as the patient has known history of asthma, wean to 40 BID Sputum culture normal respiratory roberto, however repeated WBC elevated probably related to steroids at 18.9 Continue to trend labs Continue neb treatments Consulted pulmonology thank you for your help Pneumococcal, legionella ordered IS, Pep therapy (2) Failure of outpatient treatment: Code(s): Z78.9 - Other specified health status Status: Acute Assessment and Plan: Finished course of azithromycin outpatient No notable improvement WBC up probably related to steroids trend labs Blood and sputum culture ordered (3) Asthma: Code(s): J45.909 - Unspecified asthma, uncomplicated Status: Acute Assessment and Plan: Neb treatments ordered Steroids on board Continue to trend respiratory status Could be exacerbated by the PNA Cefepime and vanco for now Sputum culture came back to no growth, will repeat at this time Add Pulmicort (4) Dyspnea on exertion: Code(s): R06.09 - Other forms of dyspnea Status: Acute Assessment and Plan: Trend respiratory track Echo does not show any acute problems Will get stress test Continue to trend labs DS: Summary Hospital Course Hospital Course: patient is a 51-year-old male with a past medical history of stroke, folliculitis, asthma who presented to the ED after failing outpatient treatment for pneumonia. Patient was having a cough with weakness was placed on azithromycin and steroids however not got any better. Patient came to the hospital he was placed on IV cefepime and vancomycin. MRSA swab was obtained and was negative. Sputum culture was obtained and was negative. Blood cultures were no growth today. Patient was then switched to doxycycline and cefepime. White blood cell count has been trending up however he has been on a pretty high dose of steroids at this time. Pneumococcal and Legionella both are pending. Patient does have a history of asthma neb treatments were started on the patient. Pulmicort has also been started. He was having some dyspnea on exertion and does sound wheezy and rhonchi on exam. However his lung sounds have gotten better and patient does feel better at this time. Patient is ready to be discharged and is wanting to be discharged. Labs vital signs remained stable at this time. Will have patient follow-up with pulmonology outpatient as they have been consulted. Will also have the patient follow-up with his primary care provider. Stress test was also performed and showed no abnormalities. Echo was performed showed a normal EF with normal diastolic dysfunction. Status at Discharge Functional status at discharge: independent ambulation Overall status at discharge: patient is progressing back to baseline Time Spent with Patient Time attestation: Total time spent providing and/or coordinating discharge services: 37 minutes Time spent: Greater than 30 minutes Specific discharge activities: Diagnostic testing, chart review, developing a treatment plan, education, care coordination documentation, physical exam, result review Exam Const: General: cooperative, healthy appearing, no acute distress, well developed, alert, awake, uncomfortable, average body habitus and well nourished Nutritional Appearance: average body habitus and wel
--- NOTE | 2022-03-26 07:15 | P.DS_ITS ---
DS: Admitting Diagnosis Discharge Date 03/26/22714 Admitting Diagnosis PNA, dyspnea with exerction DS: Discharge Diagnosis Discharge Diagnosis (1) Community acquired pneumonia: Code(s): J18.9 - Pneumonia, unspecified organism Status: Acute Assessment and Plan: * Chest X-ray shows no acute cardiopulmonary abnormality * CTA shows No PE, Bronchial wall thickening and tree in bud opacities of the left lower lobe, consistent with PNA * Change antibiotics to cefepime and doxycycline * Get blood cultures, not drawn prior to antibiotics * Steroids as the patient has known history of asthma, wean to 40 BID * Sputum culture normal respiratory roberto, however repeated * WBC elevated probably related to steroids at 18.9 * Continue to trend labs * Continue neb treatments * Consulted pulmonology thank you for your help * Pneumococcal, legionella ordered * IS, Pep therapy (2) Failure of outpatient treatment: Code(s): Z78.9 - Other specified health status Status: Acute Assessment and Plan: * Finished course of azithromycin outpatient * No notable improvement * WBC up probably related to steroids * trend labs * Blood and sputum culture ordered (3) Asthma: Code(s): J45.909 - Unspecified asthma, uncomplicated Status: Acute Assessment and Plan: * Neb treatments ordered * Steroids on board * Continue to trend respiratory status * Could be exacerbated by the PNA * Cefepime and vanco for now * Sputum culture came back to no growth, will repeat at this time * Add Pulmicort (4) Dyspnea on exertion: Code(s): R06.09 - Other forms of dyspnea Status: Acute Assessment and Plan: * Trend respiratory track * Echo does not show any acute problems * Will get stress test * Continue to trend labs DS: Summary Hospital Course Hospital Course: patient is a 51-year-old male with a past medical history of stroke, folliculitis, asthma who presented to the ED after failing outpatient treatment for pneumonia. Patient was having a cough with weakness was placed on azithromycin and steroids however not got any better. Patient came to the hospital he was placed on IV cefepime and vancomycin. MRSA swab was obtained and was negative. Sputum culture was obtained and was negative. Blood cultures were no growth today. Patient was then switched to doxycycline and cefepime. White blood cell count has been trending up however he has been on a pretty high dose of steroids at this time. Pneumococcal and Legionella both are pending. Patient does have a history of asthma neb treatments were started on the patient. Pulmicort has also been started. He was having some dyspnea on exertion and does sound wheezy and rhonchi on exam. However his lung sounds have gotten better and patient does feel better at this time. Patient is ready to be discharged and is wanting to be discharged. Labs vital signs remained stable at this time. Will have patient follow-up with pulmonology outpatient as they have been consulted. Will also have the patient follow-up with his primary care provider. Stress test was also performed and showed no abnormalities. Echo was performed showed a normal EF with normal diastolic dysfunction. Status at Discharge Functional status at discharge: independent ambulation Overall status at discharge: patient is progressing back to baseline Time Spent with Patient Time attestation: Total time spent providing and/or coordinating discharge servic
[2022-03-26] MEDS: BUDESONIDE RESPULE NEB 0.5 MG/2 ML AMP INHALATION ×2 (08:03→13:42)
[2022-03-26] MEDS: ASCORBIC ACID 500 MG TABLET PO (09:38)
[2022-03-26] MEDS: methylPREDNISolone SOD SUCC 40 MG VIAL IV PUSH (09:38)
[2022-03-26] MEDS: CLOPIDOGREL BISULFATE 75 MG TABLET PO (09:38)
[2022-03-26] MEDS: DOXYCYCLINE 100 MG/NS 100 ML 100 MG/100 ML BAG IVPB (10:42)
--- NOTE | 2022-03-26 13:38 | PC.NURSE ---
On 03/26/22, the student, [Analia Davis], provided care and completed [facility] documentation on this patient. I have reviewed the student's documentation and agree with the findings.
[2022-03-26 14:04] LABS: Basophils Percent Auto 0.2 % (0.2-1.2); Eosinophils Percent Auto 0.1 % (0-4.4); Hematocrit 50.5 % (42.0-52.0); Hemoglobin 17.2 g/dL (14.0-18.0); Immature Granulocyte Absolute 0.42 K/mm3 (0.00-0.031); Immature Granulocyte Percent A 2.1 % (0-0.5); Lymphocytes Absolute Auto 1.13 K/mm3 (0.9-3.2); Lymphocytes Percent Auto 5.7 % (18.3-44.2); Mean Corpuscular HGB Conc 34.1 g/dl (32-36); Mean Corpuscular Hemoglobin 32.4 pg (26-34); Mean Corpuscular Volume 95.1 fl (80-100); Mean Platelet Volume 10.6 fl (7.4-10.4); Monocytes Absolute Auto 0.9 K/mm3 (0.1-0.6); Monocytes Percent Auto 4.7 % (2.6-8.5); Neutrophils Absolute Auto 17.1 K/mm3 (1.3-6.7); Neutrophils Percent Auto 87.2 % (45.5-73.1); Nucleated Red Blood Cells Perc 0.1 % (0.0-0.2); Platelet Count Result 274 k/mm3 (150-375); Red Blood Count 5.31 M/mm3 (4.6-6.20); Red Cell Distribution Width 12.9 % (11.5-14.5); White Blood Count 19.7 K/mm3 (4.5-10.0)
[2022-03-26 14:28] LABS: Alanine Aminotransferase 25 U/L (6-50); Albumin Level 4.1 g/dL (3.5-5.1); Alkaline Phosphatase 63 U/L (38-126); Anion Gap 11 mmol/L (8-16); Aspartate Amino Transferase 26 U/L (17-59); Bilirubin,Total 0.7 mg/dL (0.2-1.3); Blood Urea Nitrogen 24 mg/dL (9-20); Calcium 8.9 mg/dL (8.4-10.2); Carbon Dioxide 24 mmol/L (22-30); Chloride 100 mmol/L (98-107); Estimated CRCL calculation 95 ml/min; Estimated Glomerular Filt Rate > 60; Glucose 138 mg/dL (65-110); Potassium 4.3 mmol/L (3.4-5.0); Sodium 135 mmol/L (137-145)
[2022-03-26 21:59] LABS: Pneumococcal Antigen Urine Not Detected (Not Detected)
[2022-03-27 16:38] LABS: Legionella pneumophila Ag Ur Not Detected (Not Detected)
== END 2022-03-26 15:55 | disposition home or self-care (01) | DRG 195 ==
LOC: ANHED 22:20 → ANH2MED 23:30
PROVIDERS: Internal Medicine Critical Care Medicine; Admitting Provider Internal Medicine; Emergency Provider Emergency Medicine; PCP Emergency Medicine; Visit Provider Nurse Practitioner
DX: J45.909 Unspecified asthma, uncomplicated (principal); J18.9 Pneumonia, unspecified organism; R06.09 Other forms of dyspnea; L73.9 Follicular disorder, unspecified; N40.0 Benign prostatic hyperplasia without lower urinary tract symptoms; Z20.822 Contact with and (suspected) exposure to COVID-19; Z86.16 Personal history of COVID-19; Z78.9 Other specified health status; Z79.899 Other long term (current) drug therapy; Z86.73 Personal history of transient ischemic attack (TIA), and cerebral infarction without residual deficits; Z88.0 Allergy status to penicillin
CPT/HCPCS: 36415; 71046; 71275; 78452; 80053; 80202; 83036; 83690; 83735; 83880; 84484; 85025; 85380; 87040; 87070; 87081; 87205; 87449; 87899; 93005; 93017; 93306; 94640; 96365; 96366; 96367; 96375; 96376; 99285; A9270; A9502; C9803; G0378; J0692; J1940; J1956; J2920; J2930; J3370; Q9967; U0003; U0005

== ENCOUNTER 2022-05-12 08:06 | Outpatient (CLI) | payer BC, SELFPAY ==
--- NOTE | 2022-05-12 14:02 | WPDPFTINT ---
PFT Procedure Performed PFT Procedure Performed Spirometry with Pre/Post Bronchodilator Plethysmography (Lung Vol) Diffusing Cap (DLCO) Flow Vol Loop PFT Interpretation Lung volumes were measured with the body plethysmography method. Lung volumes are unremarkable. Spirometry showed normal expiratory flow rates and a normal FEV1 to FVC ratio of 81%. Following administration of a bronchodilator, there was no significant increase in the expiratory flow rates. Lung diffusion capacity is within the normal range at 82% predicted. The flow volume loop is unremarkable. Impression: Spirometry, lung volumes, and lung diffusion capacity all within the normal range
== END 2022-05-12 08:07 | disposition home or self-care (01) ==
LOC: ANHPFT 08:07
PROVIDERS: PCP Emergency Medicine; Visit Provider Internal Medicine Critical Care Medicine
DX: J45.909 Unspecified asthma, uncomplicated (principal)
CPT/HCPCS: 94060; 94726; 94729

== ENCOUNTER 2022-05-25 15:40 | Outpatient (CLI) | payer BC, SELFPAY ==
--- NOTE | ~2022-05-25 | CT_ITS ---
CT Scan of the Chest without Contrast: Clinical Indication: Pneumonia Technique: Contiguous sections were acquired throughout the chest without intravenous contrast. Dose reduction technique was used on this scan by utilizing automated exposure control and iterative recon struction technique. The dose-length product (DLP) was 341.20 mGy-cm. COMPARISON: 03/20/2022 Findings: There is no evidence of any significant mediastinal, hilar or axillary lymphadenopathy. The mediastin al soft tissues appear normal. There is no evidence of pleural or pericardial effusion. The lungs are clear. No pulmonary nodules or infiltrates are noted. Images through the upper abdomen reveal no abnormalities. Impression: No significant abnormalities seen. Clear lungs. Reviewed, dictated and finalized at location . [employer] Impression: No significant abnormalities seen. Clear lungs.
== END 2022-05-25 15:41 | disposition home or self-care (01) ==
PROVIDERS: PCP Emergency Medicine; Visit Provider Internal Medicine Critical Care Medicine
DX: J18.9 Pneumonia, unspecified organism (principal)
CPT/HCPCS: 71250

== ENCOUNTER 2022-08-01 14:16 | Emergency (ER) | payer BC, SELFPAY ==
--- NOTE | ~2022-08-01 | XR_ITS ---
EXAM: XR finger 1st RT min 2V DATE: 08/01/2022 15:09 HISTORY: diffuse rt thumb pain x 1 month ? etiology . COMPARISON: None available. FINDINGS: Normal mineralization. No fracture or dislocation. No lytic or blastic lesion. Mild scatte red degenerative change. No erosion or periosteal change. Soft tissues within normal limits. IMPRESSION: No acute osseous finding in the right first digit. Reviewed, dictated and finalized at location K. ON[employer] WORKER
[2022-08-01 14:43] VITALS: BP 130/72; PULSE 67; RESP 16; TEMP 36.7; O2SAT 99
--- NOTE | 2022-08-01 15:15 | ED.UPPEXIN ---
HPI - Extremity Injury (Upper) General Chief Complaint: Extremity Injury, Upper Stated Complaint: right thumb pain Time Seen by Provider: 08/01/22 15:15 Source: patient Mode of arrival: ambulatory Limitations: no limitations History of Present Illness HPI narrative: 51 y/o male presented for c/o right thumb pain and mild swelling for 3 weeks. Denies injury. Endorses pain started on first knuckle then to base, with limited ROM at the base. States he cannot make a fist. States he was treated by PCP for trigger finger with steroid which he finished 2 days ago. States it is no longer 'sticking' but Pain still 11/14. Denies redness, bruising or deformity. Related Data Home Medications Medication Instructions Recorded Confirmed clopidogrel 75 mg tablet (Plavix) 75 mg PO DAILY 11/17/21 03/21/22 Allergies Allergy/AdvReac Type Severity Reaction Status Date / Time Penicillins Allergy Mild Hives Verified 08/01/22 15:11 Review of Systems Review of Systems: CONSTITUTIONAL: Denies body aches, fever, chills CARDIOVASCULAR: Denies chest pain, palpitations, or edema. RESPIRATORY: Denies cough or dyspnea. SKIN: Denies rash, itching, or wounds. MUSCULOSKELETAL: per HPI NEUROLOGIC: Denies headache, numbness, tingling, or weakness. All systems reviewed & are unremarkable except as noted in HPI and below PMFSH Past Medical History Medical History Asthma Folliculitis History of CVA (cerebrovascular accident) Overweight (BMI 25.0-29.9) Reactive cervical nodes Surgical History Surgical History H/O medial meniscus repair of right knee H/O vasectomy Hx of tonsillectomy Family History Family History Father Malignant neoplasm of prostate Hypertension Mother Pancreatic cancer Social History Social History Social History: Pain patient states that he currently lives with his brother. He elects his dad Dewey to be his surrogate if he is unable to make his own decisions. He does have 1 son and him in his brother do have multiple pets including [address] Patient also works for [employer] in the [employer] department Smoking status: Never smoker Alcohol intake: current Drinks per week: 3 Alcohol use details: social drinker- usually Beer every other weekend Substance use: never Living arrangements: with family Additional living arrangements comments: Lives with Brother Occupation/Education: occupation Additional occupation/education comments: [employer] Gender identity (if verbalized by the patient): Male Sexual Orientation (if Verbalized by the Patient): Straight or Heterosexual Spiritual care concerns: No Agree to blood products: Yes Comments At time of signature, I have reviewed and agree with nursing past medical, surgical, social and family history unless otherwise noted. Please see nursing chart for further information. There is no relevant family history pertinent to the presenting complaint Exam Narrative: GENERAL: Well-appearing CHEST: Speaks in full sentences. No respiratory distress. HEART: Regular rate and rhythm. Normal and equal peripheral pulses. EXTREMITIES: Right thumb MCP tender with palpation, mild swelling. Decreased ROM at MCP, unable to make fist with thumb. Hand has normal strength and sensation, No tenderness to DIP or snuff box. No open wounds or obvious deformity; alignment normal, pulse palpable and equal bilaterally, skin warm, dry, pink. Capillary refill less than 3 seconds. SKIN: Warm, dry, no rash. NEURO: Alert and oriented x3. Course Course Emergency Course: Patient is aware of diagnosis, understands and agrees to treatment plan. Anticipatory guidance given. Patient agrees to follow-up as directed and is aware of reasons to
== END 2022-08-01 15:34 | disposition home or self-care (01) ==
PROVIDERS: Emergency Provider Nurse Practitioner Family; PCP Emergency Medicine
DX: M79.644 Pain in right finger(s) (principal); J45.909 Unspecified asthma, uncomplicated; Z86.73 Personal history of transient ischemic attack (TIA), and cerebral infarction without residual deficits; Z98.52 Vasectomy status
CPT/HCPCS: 73140; 99213; G0463

== ENCOUNTER 2024-03-06 12:51 | Outpatient (CLI) | payer BC, SELFPAY ==
--- NOTE | ~2024-03-06 | CT_ITS ---
CT abdomen pelvis wo con Ordering provider: Jasper Vergara MD History: 53 years Male with . UPPER ABD PAIN X 4 WEEKS . Comparison: None. Technique: CT abdomen and pelvis without IV and without oral contrast. Automated exposure control and iterative reconstruction technique were employed. The dose-length product was 551.96 mGy-cm. Findings: VISUALIZED LOWER CHEST: Normal. UPPER ABDOMINAL ORGANS: Liver: Normal. Gallbladder: Normal. Spleen: Normal. Stomach/duodenum: Normal. Pancreas: Normal. Adrenals: Normal. Kidneys: Small cysts in the left kidney upper and mid pole. PELVIC ORGANS: The bladder is underfilled with slightly thickened wall. Evaluation for cystitis advis ed. BOWEL AND MESENTERY: Colon: No evidence of diverticulitis.. Normal appendix. Small Bowel: Normal. No obstruction. Peritoneum/mesentery: No free air or free fluid. No mesenteric lymphadenopathy. RETROPERITONEUM: Normal aorta. No retroperitoneal lymphadenopathy. MUSCULOSKELETAL: Superficial soft tissues: The superficial soft tissues are normal. Bones: Age appropriate degenerative changes of the spine. IMPRESSION: 1. No evidence of appendicitis, diverticulitis or intestinal obstruction. Reviewed, dictated and finalized at location A.
[2024-03-06 13:12] LABS: Hematocrit 49.8 % (42.0-52.0); Hemoglobin 17.2 g/dL (14.0-18.0); Mean Corpuscular HGB Conc 34.5 g/dl (32-36); Mean Corpuscular Hemoglobin 32.4 pg (26-34); Mean Corpuscular Volume 93.8 fl (80-100); Mean Platelet Volume 11.1 fl (7.4-10.4); Platelet Count Result 209 k/mm3 (150-375); Red Blood Count 5.31 M/mm3 (4.6-6.20); Red Cell Distribution Width 12.8 % (11.5-14.5); White Blood Count 6.5 K/mm3 (4.5-10.0)
[2024-03-06 13:13] LABS: Add Urine Microscopic? NO; Appearance Urine Clear (Clear); Bilirubin Urine Negative (Negative); Blood Urine Negative (Negative); Color Urine Yellow (Yellow); Glucose Urine UA Negative (Negative); Ketones Urine 1+ mg/dL (Negative); Leukocyte Esterase Ur Negative LEU/UL (Negative); Nitrate Urine Negative (Negative); Protein Urine Negative (Negative); Urobilinogen Urine 0.2 mg/dL (<2.0); pH Urine 5.5 (5.0-9.0)
[2024-03-06 13:24] LABS: Alanine Aminotransferase 40 U/L (6-50); Albumin Level 4.5 g/dL (3.5-5.1); Alkaline Phosphatase 60 U/L (38-126); Amylase 69 U/L (30-110); Anion Gap 6 mmol/L (4-12); Aspartate Amino Transferase 38 U/L (17-59); Bilirubin,Total 1.4 mg/dL (0.2-1.3); Blood Urea Nitrogen 17 mg/dL (9-20); Calcium 8.7 mg/dL (8.4-10.2); Carbon Dioxide 29 mmol/L (22-30); Chloride 102 mmol/L (98-107); Cholesterol 172 mg/dL (0-200); Estimated Glomerular Filt Rate > 60; Glucose 94 mg/dL (65-110); HDL Direct 55 mg/dL; Lipase 64 U/L (23-300); Potassium 4.2 mmol/L (3.4-5.0); Sodium 137 mmol/L (137-145); Triglycerides 65 mg/dL (<150)
[2024-03-06 13:35] LABS: LDL Cholesterol Direct 87 mg/dL
[2024-03-06 13:54] LABS: Prostate Specific Antigen 0.8 ng/mL (< OR = 4.0); Thyroid Stimulating Hormone 0.436 uIU/mL (0.465-4.680); Vitamin D 25 Hydroxy 63.9 ng/mL
[2024-03-06 13:57] LABS: Creatinine Urine 161.4 mg/dL
[2024-03-06 14:04] LABS: MALB Creatinine Ratio < 3.7 mg/g (0-30); Microalbumin Urine Random < 6.0 mg/L (0-16.7)
== END 2024-03-06 12:52 | disposition home or self-care (01) ==
PROVIDERS: PCP Emergency Medicine; Visit Provider Emergency Medicine
DX: Z00.00 Encounter for general adult medical examination without abnormal findings (principal); J45.909 Unspecified asthma, uncomplicated; I10 Essential (primary) hypertension; R31.9 Hematuria, unspecified; F32.9 Major depressive disorder, single episode, unspecified
CPT/HCPCS: 36415; 74176; 80053; 80061; 81003; 82043; 82150; 82306; 83690; 84153; 84439; 84443; 85027

== ENCOUNTER 2024-03-13 15:51 | Emergency (ER) | payer BC, SELFPAY ==
--- NOTE | ~2024-03-13 | XR_ITS ---
XR knee LT min 4V Ordering provider: Richie Bates APRN History: . left knee pain . Comparison: None. FINDINGS: BONES: No acute fracture or dislocation. JOINT SPACES: Normal. SOFT TISSUES: Normal. IMPRESSION: No acute osseous abnormality left knee. Reviewed, dictated and finalized at location A.
[2024-03-13 15:59] VITALS: BP 116/67; PULSE 65; RESP 20; TEMP 37.1; O2SAT 99
--- NOTE | 2024-03-13 16:22 | ED.LOWEXIN ---
HPI - Extremity Injury (Lower) General Chief Complaint: Extremity Problem,Nontraumatic Stated Complaint: Left Knee Pain Time Seen by Provider: 03/13/24 16:05 Source: patient Mode of arrival: ambulatory Limitations: no limitations History of Present Illness HPI Narrative: Tab is a 53-year-old male patient presenting to the clinic today with complaints of left knee pain x1 month. He reports that pain is to the posterior knee. Pain is worse with bending his knee. History of meniscus tear in the left knee. Related Data Home Medications Medication Instructions Recorded Confirmed clopidogrel 75 mg tablet (Plavix) 75 mg PO DAILY 11/17/21 03/13/24 Allergies Allergy/AdvReac Type Severity Reaction Status Date / Time Penicillins Allergy Mild Hives Verified 03/13/24 16:17 Review of Systems Review of Systems: Pertinent positives per HPI. Patient denies any fever, chills, rash, headache, visual changes, dizziness, cough, runny nose, sore throat, shortness of breath, chest pain, palpitations, nausea, vomiting, diarrhea, constipation, abdominal pain, or any urinary issues. [facility] Past Medical History Medical History Asthma Folliculitis History of CVA (cerebrovascular accident) Overweight (BMI 25.0-29.9) Reactive cervical nodes Surgical History Surgical History H/O medial meniscus repair of right knee H/O vasectomy Hx of tonsillectomy Family History Family History Father Malignant neoplasm of prostate Hypertension Mother Pancreatic cancer Social History Social History Social History: Pain patient states that he currently lives with his brother. He elects his dad Dewey to be his surrogate if he is unable to make his own decisions. He does have 1 son and him in his brother do have multiple pets [address] 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 Smoking status: Never smoker Alcohol intake: current Drinks per week: 3 Alcohol use details: social drinker- usually Beer every other weekend Substance use: never Living arrangements: with family Additional living arrangements comments: Lives with Brother Occupation/Education: occupation Additional occupation/education comments: [employer] Gender identity (if verbalized by the patient): Male Sexual Orientation (if Verbalized by the Patient): Straight or Heterosexual Spiritual care concerns: No Agree to blood products: Yes Comments At the time of my signature, I reviewed and agree with the nursing past medical, surgical, social, and family history. There is no relevant family history pertinent to the patient complaint. Exam Narrative: General: Well-developed, well nourished, in no apparent distress Head: Normocephalic, atraumatic. Cardio: Regular rate and rhythm, s1 and s2 normal, no murmur appreciated. Resp: Clear to auscultation bilaterally, no rhonchi, rales, wheezing or rubs. Musculoskeletal: No deformity, tender to palpation over the posterior knee, pain with full flexion of the knee, grossly normal range of motion, muscle strength strong and equal, peripheral pulse strong, no edema, no cyanosis, normal gait and station Course Course Emergency Course: Portions of this record may have been created with voice recognition software. Level of Care: Express Care Visit Vital Signs Vital signs: Vital Signs Temperature 37.1 C 03/13/24 15:59 Pulse Rate 65 03/13/24 15:59 Respiratory Rate 20 03/13/24 15:59 Blood Pressure 116/67 03/13/24 15:59 Pulse Oximetry 99 03/13/24 15:59 Oxygen Delivery Room Air 03/13/24 15:59 Temperature 37.1 C 03/13/24 15:59 Pulse Rate 65 03/13/24 15:59 Respiratory Rate 20 03/13/24 15:59 Blood Pressure
== END 2024-03-13 17:19 | disposition home or self-care (01) ==
PROVIDERS: Emergency Provider Nurse Practitioner Family; PCP Emergency Medicine
DX: M25.562 Pain in left knee (principal); J45.909 Unspecified asthma, uncomplicated; Z86.73 Personal history of transient ischemic attack (TIA), and cerebral infarction without residual deficits
CPT/HCPCS: 73564; 99213; G0463

== ENCOUNTER 2024-04-27 10:23 | Emergency (ER) | payer BC, SELFPAY ==
[2024-04-27 10:25] VITALS: BP 142/107; PULSE 65; RESP 20; TEMP 36.6; O2SAT 100
--- NOTE | 2024-04-27 12:38 | ED.LOWEXIN ---
HPI - Extremity Injury (Lower) General Chief Complaint: Extremity Injury, Lower Stated Complaint: knee pain Time Seen by Provider: 04/27/24 12:08 History of Present Illness HPI Narrative: 53-year-old male presenting with left knee pain. States that he has been dealing with a left knee injury for the past 4-6 weeks. He has been trying to get in with orthopedic surgery but is unable to until May 12. States that this morning he twisted his knee and exacerbated the pain. Denies new injuries or other complaints. Related Data Home Medications Medication Instructions Recorded Confirmed clopidogrel 75 mg tablet (Plavix) 75 mg PO DAILY 11/17/21 04/28/24 Allergies Allergy/AdvReac Type Severity Reaction Status Date / Time Penicillins Allergy Mild Hives Verified 04/28/24 06:51 Review of Systems Review of Systems: All systems reviewed & are unremarkable except as noted in HPI and below PMFSH Past Medical History Medical History (Updated 04/30/24 @ 09:25 by Rylan Crystal MD) Asthma CVA (cerebral vascular accident) Folliculitis History of CVA (cerebrovascular accident) Overweight (BMI 25.0-29.9) Reactive cervical nodes Surgical History Surgical History H/O medial meniscus repair of right knee H/O vasectomy Hx of tonsillectomy Family History Family History Father Malignant neoplasm of prostate Hypertension Mother Pancreatic cancer Social History Social History Social History: Pain patient states that he currently lives with his brother. He elects his dad Dewey to be his surrogate if he is unable to make his own decisions. He does have 1 son and him in his brother do have multiple pets including [address] Patient also works for [employer] in the [employer] department Smoking status: Never smoker Alcohol intake: current Drinks per week: 3 Alcohol use details: social drinker- usually Beer every other weekend Substance use: never Living arrangements: with family Additional living arrangements comments: Lives with Brother Occupation/Education: occupation Additional occupation/education comments: [employer] Gender identity (if verbalized by the patient): Male Sexual Orientation (if Verbalized by the Patient): Straight or Heterosexual Spiritual care concerns: No Agree to blood products: Yes Exam Narrative: GENERAL: Well-appearing, in no acute distress, pleasant cooperative HEAD: Normocephalic, atraumatic. EYES: PERRLA and EOMI. ENT: Grossly unremarkable NECK: Supple. CHEST: No respiratory distress. HEART: Regular rate and rhythm EXTREMITIES: L knee diffusely tender, ROM intact though painful, no obvious swelling or erythema SKIN: Warm, dry, no rash. NEURO: Alert and oriented x3. PSYCH: Normal mood and affect. Course Vital Signs Vital signs: Vital Signs Temperature 97.9 F 04/27/24 10:25 Pulse Rate 65 04/27/24 10:25 Respiratory Rate 20 04/27/24 10:25 Blood Pressure 142/107 H 04/27/24 10:25 Pulse Oximetry 100 04/27/24 10:25 Temperature 97.2 F L 04/27/24 13:14 Pulse Rate 74 04/27/24 13:14 Respiratory Rate 19 04/27/24 13:14 Blood Pressure 130/78 04/27/24 13:14 Pulse Oximetry 100 04/27/24 13:14 MDM - Extremity Injury (Lower) MDM Narrative Medical decision making narrative: 53-year-old male presenting with acute on chronic left knee pain. Vitals stable. Exam remarkable for the above. Do not feel imaging is warranted at this time as he just had an x-ray last month and he denies any new injuries. States that he just twisted it wrong this morning which exacerbated his pain. He already has an appointment with orthopedic surgery in a few weeks. He has crutches, will provide a knee immobilizer. Recommend Tylenol and naproxen. Discussed appropriate supportive care and return precautions. He is agreeable with this plan. Discharged in stable condition. Differential Diagnosis Differential diagnosis: Likely ankle sprain and strain and acute internal derangement of knee Medical Records Attestation: I reviewed the patient's medical records. Critical Care Time Critical Care Time Critical Care Time: No Discharge Plan Discharge Clinical Impression: Acute internal derangement of knee, Knee pain, left Patient Disposition: Home, Self-Care Condition: Stable Instructions: Antibiotic Form, Knee Pain (ED), Knee Immobilizer (ED) Additional Instructions: Please use the Tylenol and naproxen as needed for pain. Please follow-up with orthopedic surgery as discussed. If your symptoms worsen or other concerning symptoms arise, please return to the ER. Prescriptions: New acetaminophen [Tylenol Extra Strength] 500 mg tablet 1,000 mg PO Q6H PRN (Reason: fever or pain) Qty: 30 0RF No Action clopidogrel [Plavix] 75 mg tablet 75 mg PO DAILY hydrocodone-acetaminophen 7.5-325 mg tablet 1 tablet PO Q4H PRN (Reason: pain) Qty: 30 0RF Follow-up/Referrals: Jasper Vergara MD [Primary Care Provider] - Rylan Crystal MD [Physician] - Stand Alone Forms: Work/School Release IP
[2024-04-27] MEDS: ACETAMINOPHEN 500 MG TABLET 1000 MG PO (13:04)
[2024-04-27] MEDS: NAPROXEN 500 MG TABLET PO (13:05)
[2024-04-27 13:14] VITALS: BP 130/78; PULSE 74; RESP 19; TEMP 36.2; O2SAT 100
== END 2024-04-27 13:18 | disposition home or self-care (01) ==
PROVIDERS: Emergency Provider Emergency Medicine; PCP Emergency Medicine
DX: M23.92 Unspecified internal derangement of left knee (principal); S89.92XA Unspecified injury of left lower leg, initial encounter; J45.909 Unspecified asthma, uncomplicated; E66.3 Overweight; Z86.73 Personal history of transient ischemic attack (TIA), and cerebral infarction without residual deficits; X50.9XXA Other and unspecified overexertion or strenuous movements or postures, initial encounter
CPT/HCPCS: 99283; A9270

== ENCOUNTER 2024-05-10 08:43 | Outpatient (CLI) | payer BC, SELFPAY ==
--- NOTE | ~2024-05-10 | MR_ITS ---
MRI of the left knee Clinical history: Pain Technique: Coronal proton density and proton density-weighted images, sagittal proton-density and T2 fat-sat images, and axial proton-density fat-saturated images were acquired. Findings: Anterior and posterior cruciate ligaments are intact. Medial collateral ligament and the la teral collateral ligament complex are intact. Popliteus tendon is intact. There is a large radial tear at the posterior root of the medial meniscus. No lateral meniscal tear s een. There is extensive intrasubstance degenerative signal in the posterior horn of the medial menisc us otherwise. There is extensive grade IV chondromalacia of the lateral facet extending to the patellar apex, with mild subchondral reactive marrow edema. There is patchy moderate to high-grade chondromalacia the fem oral trochlea. There is focal grade IV chondromalacia of the central aspect of the medial femoral con dyle. There is mild chondral thinning along the lateral femoral condyle. Small tricompartmental osteo phytes are present. Extensor mechanism is intact. Small joint effusion present. Minimal Martin cyst present. Impression: Large radial tear at the posterior root of the medial meniscus. 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 Small joint effusion and minimal Martin's cyst. Reviewed, dictated and finalized at location . CHAIRMAN Impression: Large radial tear at the posterior root of the medial meniscus. 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 Small joint effusion and minimal Martin's cyst.
== END 2024-05-10 08:44 | disposition home or self-care (01) ==
PROVIDERS: PCP Orthopaedic Surgery; Visit Provider Emergency Medicine
DX: S83.242A Other tear of medial meniscus, current injury, left knee, initial encounter (principal); M17.12 Unilateral primary osteoarthritis, left knee; M25.462 Effusion, left knee; M71.22 Synovial cyst of popliteal space [Baker], left knee; X58.XXXA Exposure to other specified factors, initial encounter
CPT/HCPCS: 73721

== ENCOUNTER 2024-08-04 00:45 | Day surgery (SDC) | payer BC, SELFPAY ==
[2024-07-28 10:45] VITALS: BMI 27.1
--- NOTE | 2024-07-28 11:02 | PC.NURSE ---
Spoke with patient regarding medication PLAVIX. PATIENT verbalizes understanding that the last dose is to be taken on 07/30/24 and the Endoscopist will instruct them when to restart after the procedure.
[2024-08-04 09:52] VITALS: BP 120/67; PULSE 71; RESP 16; TEMP 35.7; O2SAT 98; BMI 26.6
--- NOTE | 2024-08-04 09:52 | WPDANESEPPF ---
Anes - Initial Pre Proc Eval Procedure: Operation Date: 08/04/24 11:00 Proposed Procedures p Esophagogastroduodenoscopy&Screen Colon - Attila Montana MD Date/Time: 08/04/24 09:52 Surgeon: Attila Montana MD Pre Op Diagnosis: Screening,Epigastric pain, ferry terminal agent use NSAID Patient Data Age: 53 Gender: M Height: 1.83 m Weight: 91 kg Allergies Allergy/AdvReac Type Severity Reaction Status Date / Time Penicillins Allergy Mild Hives Verified 08/04/24 09:49 Home Medications ?Medication ?Instructions ?Recorded ?Confirmed ?Type minoxidil 2.5 mg tablet 2.5 mg PO DAILY 05/12/24 08/04/24 History clopidogrel 75 mg tablet (Plavix) 75 mg PO DAILY #30 tabs 05/29/24 08/04/24 Rx finasteride 1 mg tablet 1 mg PO DAILY 05/29/24 08/04/24 History tadalafil 10 mg tablet (Cialis) 10 mg PO DAILY PRN sexual activity 05/29/24 07/28/24 Rx #10 tabs testosterone cypionate 100 mg/mL 50 mg (0.5 mL) subcut WEEKLY #10 mL 06/28/24 08/04/24 Rx intramuscular oil (Depo-Testosterone) cyanocobalamin (vitamin B-12) 1,000 mcg IM WEEKLY 07/28/24 08/04/24 History 1,000 mcg/mL injection solution meloxicam 15 mg tablet 15 mg PO DAILY 07/28/24 08/04/24 History Patient hx anesthesia problems: none Family hx anesthesia problems: none Results Review: All pre-operative results and documents have been reviewed as part of the pre-operative evaluation. [facility] Past Medical History Medical History CVA (cerebral vascular accident) Asthma Overweight (BMI 25.0-29.9) History of CVA (cerebrovascular accident) Folliculitis Reactive cervical nodes Surgical History Surgical History H/O vasectomy Hx of tonsillectomy H/O medial meniscus repair of right knee Family History Family History Father Malignant neoplasm of prostate Hypertension Mother Pancreatic cancer Cerebrovascular accident Social History Social History Social History: Pain patient states that he currently lives with his brother. He elects his dad Dewey to be his surrogate if he is unable to make his own decisions. He does have 1 son and him in his brother do have multiple pets including [address] Patient also works for [employer] in the [employer] department Smoking status: Never smoker Alcohol intake: current Drinks per week: 3 Alcohol use details: social drinker- usually Beer every other weekend Substance use: never Substance use type: does not use Do You Feel Safe in your Home?: Yes Lack of Transportation: No Lack of Food: Never True Current Housing: I Have Housing Concerned About Future Housing: No Difficulty Paying Gas/Electric Bills: No Difficulty Paying for Meds: No Currently Unemployed: No Education: Trade/Vocational Certificate Difficulty w/ Childcare or Family Care: No Living arrangements: with family Additional living arrangements comments: Lives with Brother Occupation/Education: occupation Additional occupation/education comments: [employer] Gender identity (if verbalized by the patient): Male Sexual Orientation (if Verbalized by the Patient): Straight or Heterosexual Spiritual care concerns: No Agree to blood products: Yes Anes - Eval Final PreProcedure Day of Procedure 08/04/24 09:52 Patient weight: overweight Heart: regular rate and rhythm Lungs: clear to auscultation Airway: Mallampati scale class II Neurological: alert and oriented Last oral intake: >/= 8 hours ASA classification: III Emergent: no Anesthetic plan: proceed Anesthesia type and monitoring: general GIVS and standard monitoring Results Review: All pre-operative results and documents have been reviewed as part of the pre-operative evaluation. Informed Consent: The patient's anesthetic plan and its attendant risks and benefits were discussed with the patient/family/POA. Questions were solicited and answers provided to the satisfaction of the patient/family/POA.
[2024-08-04] MEDS: LACTATED RINGERS 1,000 ML 150 ML IV CONT (10:01)
--- NOTE | 2024-08-04 10:05 | PM.HPGS ---
History of Present Illness History of Present Illness Consent: Risks, benefits, and alternatives have been discussed and questions answered. Patient agrees to proceed with procedure. Chief complaint: Screening,Epigastric pain, terminal block assembler use NSAID Narrative: Tab Arango is a 53 year old male with episode of non-cardiac chest pain but resolved, here for EGD. Also he is getting first screening colonoscopy. Review of Systems Review of Systems: All systems reviewed & are unremarkable except as noted in HPI and below PMFSH Past Medical History Medical History CVA (cerebral vascular accident) Asthma Overweight (BMI 25.0-29.9) History of CVA (cerebrovascular accident) Folliculitis Reactive cervical nodes Surgical History Surgical History H/O vasectomy Hx of tonsillectomy H/O medial meniscus repair of right knee Family History Family History Father Malignant neoplasm of prostate Hypertension Mother Pancreatic cancer Cerebrovascular accident Social History Social History Social History: Pain patient states that he currently lives with his brother. He elects his dad Dewey to be his surrogate if he is unable to make his own decisions. He does have 1 son and him in his brother do have multiple pets including [address] Patient also works for [employer] in the [employer] department Smoking status: Never smoker Alcohol intake: current Drinks per week: 3 Alcohol use details: social drinker- usually Beer every other weekend Substance use: never Substance use type: does not use Do You Feel Safe in your Home?: Yes Lack of Transportation: No Lack of Food: Never True Current Housing: I Have Housing Concerned About Future Housing: No Difficulty Paying Gas/Electric Bills: No Difficulty Paying for Meds: No Currently Unemployed: No Education: Trade/Vocational Certificate Difficulty w/ Childcare or Family Care: No Living arrangements: with family Additional living arrangements comments: Lives with Brother Occupation/Education: occupation Additional occupation/education comments: [employer] Gender identity (if verbalized by the patient): Male Sexual Orientation (if Verbalized by the Patient): Straight or Heterosexual Spiritual care concerns: No Agree to blood products: Yes Meds Home Medications and Allergies Home Medications ?Medication ?Instructions ?Recorded ?Confirmed ?Type minoxidil 2.5 mg tablet 2.5 mg PO DAILY 05/12/24 08/04/24 History clopidogrel 75 mg tablet (Plavix) 75 mg PO DAILY #30 tabs 05/29/24 08/04/24 Rx finasteride 1 mg tablet 1 mg PO DAILY 05/29/24 08/04/24 History tadalafil 10 mg tablet (Cialis) 10 mg PO DAILY PRN sexual activity 05/29/24 07/28/24 Rx #10 tabs testosterone cypionate 100 mg/mL 50 mg (0.5 mL) subcut WEEKLY #10 mL 06/28/24 08/04/24 Rx intramuscular oil (Depo-Testosterone) cyanocobalamin (vitamin B-12) 1,000 mcg IM WEEKLY 07/28/24 08/04/24 History 1,000 mcg/mL injection solution meloxicam 15 mg tablet 15 mg PO DAILY 07/28/24 08/04/24 History Allergies Allergy/AdvReac Type Severity Reaction Status Date / Time Penicillins Allergy Mild Hives Verified 08/04/24 09:49 Vital Signs Vital Signs - 24 hr 08/04/24 09:52 Temperature 96.2 F L Pulse Rate 71 Respiratory Rate 16 Blood Pressure 120/67 Pulse Oximetry 98 Oxygen Delivery Room Air Exam Const: General: comfortable and no acute distress HENMT: Face/Nose/Sinus: Normal nares present Eyes: General: appearance normal, both eyes and all related structures Neck: Neck: no JVD Resp: Auscultation: clear to auscultation bilaterally Cardio: Rate: regular rate Rhythm: regular rhythm GI: Inspection: non-distended GI Palp: Yes Soft to palpation Skin: General skin exam: normal color Neuro: General: gait normal Speech: normal speech Extrem: General: normal to inspection Psych: Mental Status: mental status grossly normal Assessment and Plan Assessment and plan (1) Epigastric pain: Code(s): R10.13 - Epigastric pain Status: Acute Assessment and Plan: egd (2) Encounter for screening colonoscopy: Code(s): Z12.11 - Encounter for screening for malignant neoplasm of colon Status: Acute Assessment and Plan: colonoscopy
--- NOTE | 2024-08-04 10:22 | SUR.OPER ---
egd ended at 1018 and colon started at 1023
[2024-08-04 10:33] VITALS: BP 104/58; PULSE 61; RESP 18; O2SAT 98
[2024-08-04 10:43] VITALS: BP 106/56; PULSE 60; RESP 17; O2SAT 98
[2024-08-04 10:53] VITALS: BP 102/62; PULSE 66; RESP 23; O2SAT 98
== END 2024-08-04 11:35 | disposition home or self-care (01) ==
PROVIDERS: PCP Family Medicine; Referring Provider Nurse Practitioner Family; Visit Provider Internal Medicine Gastroenterology
PROC: 0DJ08ZZ Inspection of Upper Intestinal Tract, Via Natural or Artificial Opening Endoscopic (ICD-10-PCS; CPT 45378; principal; 2024-08-04 11:00)
DX: Z12.11 Encounter for screening for malignant neoplasm of colon (principal); K64.8 Other hemorrhoids; R10.13 Epigastric pain; R07.89 Other chest pain; Z79.82 Long term (current) use of aspirin; J45.909 Unspecified asthma, uncomplicated; Z79.02 Long term (current) use of antithrombotics/antiplatelets
CPT/HCPCS: 43239; 45378; 88305; J2003; J2704; J7120

== ENCOUNTER 2024-11-15 16:25 | Outpatient (CLI) | payer BC, SELFPAY ==
--- NOTE | ~2024-11-15 | XR_ITS ---
Right Shoulder Technique: AP and axillary views were obtained. Clinical History: Pain Findings: No fracture or dislocation is seen. Osseous alignment is anatomic. The glenohumeral and acr omioclavicular joint spaces are preserved. There is calcific tendinitis of the distal rotator cuff in sertion region. Impression: Calcific tendinitis of the distal rotator cuff insertion region. No fracture or dislocation. Reviewed, dictated and finalized at location . Impression: Calcific tendinitis of the distal rotator cuff insertion region. No fracture or dislocation.
== END 2024-11-15 16:26 | disposition home or self-care (01) ==
LOC: MICIMG 16:25
PROVIDERS: PCP Family Medicine; Visit Provider Nurse Practitioner Family
DX: M25.511 Pain in right shoulder (principal); M75.31 Calcific tendinitis of right shoulder
CPT/HCPCS: 73030

== ENCOUNTER 2025-05-29 09:22 | Outpatient (CLI) | payer BC, SELFPAY ==
--- NOTE | ~2025-05-29 | MR_ITS ---
EXAMINATION: MR shoulder RT wo con DATE: 05/29/2025 10:14 INDICATION: Right shoulder pain TECHNIQUE: Magnetic resonance imaging (MRI) of the right shoulder was performed without intravenous contrast. Sequences included axial PD-weighted FS FSE, coronal oblique PD-weighted FS FSE, coronal oblique T2-weighted FS FSE, sagittal PD-weighted FS FSE, and sagittal T1-weighted SE. COMPARISON: None. FINDINGS: Coracoacromial arch: The acromion undersurface is curved in morphology (type II). The coracoacromial ligament is normal. Moderate acromioclavicular osteoarthritis. Rotator cuff: Mild tendinopathy of the conjoined portion of the supraspinatus and infraspinatus tendons. 8 x 3 x 6 mm globular region of low signal intensity at the insertion of the posterior most infraspinatus tendon which corresponds to amorphous calcific density on prior radiographs consistent with calcific tendi nitis. The teres minor tendon is normal. Mild subscapularis tendinopathy without discrete tear. Normal rotator cuff muscle bulk and signal. Biceps tendon, glenoid labrum and glenohumeral cartilage: Long head of the biceps tendon is normal. Glenoid labrum is normal. Mild glenohumeral osteoarthritis with regions of mild partial-thickness cartilage loss with smooth chondral surface along the apical and inferomedial aspects of the humeral head and along the inferior glenoid. Fluid: Mild increased fluid in the long head biceps tendon sheath which is disproportionate to the physiologic amount fluid in the glenohumeral joint space consistent with mild bicipital tenosynovitis.. No loose osteochondral bodies. Mild increased fluid signal in the subacromial/subdeltoid bursa consistent with mild bursitis. Bones: No fracture or pathologic marrow replacing process. IMPRESSION: 1. Mild tendinopathy of the distal subscapularis tendon and the conjoined portion of the supraspinatus and infraspinatus tendons as well as focus of calcific tendinitis at the insertion of the posterior infraspinatus tendon. 2. Mild bicipital tenosynovitis. 3. Mild subacromial/subdeltoid bursitis. 4. Moderate glenohumeral and mild acromioclavicular osteoarthritis. Reviewed, dictated and finalized at location A. LOGY TEACHER IMPRESSION: 1. Mild tendinopathy of the distal subscapularis tendon and the conjoined porti on of the supraspinatus and infraspinatus tendons as well as focus of calcific tendinitis at the insertion of the posterior infraspinatus tendon. 2. Mild bicipital tenosynovitis. 3. Mild subacromial/subdeltoid bursitis. 4. Moderate glenohumeral and mild acromioclavicular osteoarthritis.
== END 2025-05-29 09:23 | disposition home or self-care (01) ==
PROVIDERS: PCP Family Medicine; Visit Provider Physician Assistant Medical
DX: M77.8 Other enthesopathies, not elsewhere classified (principal); M75.21 Bicipital tendinitis, right shoulder; M75.51 Bursitis of right shoulder; M19.011 Primary osteoarthritis, right shoulder; G89.29 Other chronic pain
CPT/HCPCS: 73221